=== PATIENT | male | born 1960 | race Two or more races ===

== ENCOUNTER 2021-11-25 14:57 | Inpatient (IN) | payer MEDICAID ==
[~2021-11-25] VITALS: Ht 144.8 cm; Wt 61.2 kg
--- NOTE | 2021-11-25 15:00 | NUR ---
MIHAELA HUANG FROM A FACILITY C/O NON HEALING WOUND ON L STUMP. PT HAS BOTH LOWER EXTREMITIES AMPUTATED. FINISHED ANTIBIOTS (KEFLEX) ON 11/21/21. VITALS ARE WITHIN NORMAL LIMITS. BREATHING IS EVEN AND UNALBORED. PT HAS A URINARY BAG ATTACHED TO LEG. AWAITING MD ORTEGA.
--- NOTE | 2021-11-25 15:10 | NUR ---
IV ETSBALISHED L AC 20G. LABS AND CULTURES DRAWN AND COLLETCED AT BEDSIDE. SALINE LOCK CONVERTED
--- NOTE | 2021-11-25 15:11 | NUR ---
DR VIERA AT BEDSIDE, ASSESSING WOUND.
[2021-11-25] MEDS ORDERED: ACET-868 PO (15:18)
[2021-11-25] MEDS ORDERED: BENA40TA8 PO (15:18)
[2021-11-25] MEDS ORDERED: ASCO-352 PO (15:18)
[2021-11-25] MEDS ORDERED: METF-440 PO (15:18)
[2021-11-25] MEDS ORDERED: ATOR40TA PO (15:18)
[2021-11-25] MEDS ORDERED: ZINC220C6 PO (15:18)
[2021-11-25] MEDS ORDERED: POLY15DR40 EACHEYE (15:18)
[2021-11-25] MEDS ORDERED: GLUC1KIT IM (15:18)
[2021-11-25] MEDS ORDERED: FERR325T24 PO (15:18)
[2021-11-25] MEDS ORDERED: FOLI0.4T6 PO (15:18)
[2021-11-25] MEDS ORDERED: MULT-447 PO (15:18)
[2021-11-25] MEDS ORDERED: CYAN-51 PO (15:18)
--- NOTE | 2021-11-25 15:38 | NUR ---
MOVE SHEET SUBMITTED AND CALLED FOR BED.
[2021-11-25 15:57] LABS: BASOPHILS # (AUTO) 0.1 K/uL (0.0-0.2); BASOPHILS % (AUTO) 0.7 % (0.0-2.0); HEMATOCRIT 27 % (39-51); HEMOGLOBIN 9.1 g/dL (13.5-17.5); LYMPHOCYTES # (AUTO) 1.8 K/uL (0.8-4.8); LYMPHOCYTES % (AUTO) 24.7 % (20.0-44.0); MEAN CORPUSCULAR HGB CONC 34 g/dl (31.0-36.0); MEAN CORPUSCULAR VOLUME 86 fL (80-96); MONOCYTES # (AUTO) 0.3 K/uL (0.1-1.30); MONOCYTES % (AUTO) 3.5 % (2.0-12.0); NEUTROPHILS # (AUTO) 5.1 K/uL (1.8-8.9); NEUTROPHILS % (AUTO) 70.1 % (43.0-81.0); PLATELET COUNT (AUTO) 438 K/uL (150-450); RED BLOOD CELL COUNT(AUTO) 3.15 MIL/uL (4.5-6.0); WHITE BLOOD COUNT (AUTO) 7.3 K/uL (4.3-11.0)
--- NOTE | 2021-11-25 16:28 | NUR ---
COVID TEST COLLECTED AND SENT
[2021-11-25 16:46] LABS: CALCIUM, SERUM 8.7 mg/dL (8.5-10.1); CREATININE 0.8 mg/dL (0.6-1.3); POTASSIUM 4.8 mmol/L (3.5-5.1)
--- NOTE | 2021-11-25 18:04 | NUR ---
[facility] CALLED STAFFING MGR PAGED.
[2021-11-25] MEDS ORDERED: Z GUARD REMEDY 4 OZ OINT TP PRN (19:00)
[2021-11-25] MEDS ORDERED: ACETAMINOPHEN 325 MG TABLET PO PRN (19:00)
[2021-11-25] MEDS ORDERED: ONDANSETRON HCL/PF 4 MG/2 ML VIAL IVP PRN (19:00)
[2021-11-25] MEDS ORDERED: IV NS 0.9% 500 ML IV ONE (19:00)
[2021-11-25] MEDS ORDERED: MAG HYDROX/AL HYDROX/SIMETH 30 ML UDC PO PRN (19:00)
[2021-11-25] MEDS ORDERED: MAGNESIUM HYDROXIDE 30 ML UDC PO PRN (19:00)
[2021-11-25] MEDS ORDERED: DEXTROSE 50%-WATER 50 ML DISP.SYRIN IV PRN (19:30)
[2021-11-25] MEDS ORDERED: ENOXAPARIN SODIUM 40 MG/0.4 ML DISP.SYRIN SQ ONE (20:54)
[2021-11-25] MEDS ORDERED: VANCOMYCIN 1 GM VIAL ONE (20:55)
[2021-11-25] MEDS ORDERED: VANCOMYCIN 500 MG VIAL ONE (20:57)
[2021-11-25] MEDS ORDERED: WATER FOR INJECTION,STERILE 10 ML ONE (20:58)
[2021-11-25] MEDS ORDERED: VANCOMYCIN 1.25 GM in IV D5W 250 ML IV ONE (21:00)
[2021-11-25] MEDS: ENOXAPARIN SODIUM 40 MG/0.4 ML DISP.SYRIN SQ SCH (21:10)
[2021-11-25] MEDS: BLOOD SUGAR DIAGNOSTIC 1 EACH STRIP IN SCH (22:10)
[2021-11-25] MEDS ORDERED: INSULIN REGULAR, HUMAN 100 UNIT/ML 10 ML VIAL ONE (22:18)
[2021-11-25] MEDS: INSULIN REGULAR, HUMAN 100 UNIT/ML 3 ML VIAL SQ PRN (22:23)
--- NOTE | 2021-11-26 00:53 | NUR ---
REPORT GIVEN TO TABITHA FOR KIRBY
[2021-11-26 01:15] VITALS: BP 104/60
--- NOTE | 2021-11-26 01:17 | NUR ---
PT WAS TRANSFERRED TO 322 UNDER ACLS IN STABLE CONDITION.
[2021-11-26 02:03] VITALS: BP 104/60
--- NOTE | 2021-11-26 04:22 | NUR ---
ADMISSION NOTES RECEIVED PT VIA MAYELA @1656. PT AOx4, ABLE TO MAKE NEEDS KNOWN AND FRISIAN SPEAKING. ON RA AND TOLERATING WELL. NO SOB NOTED. NO S/SX OF RESPIRATORY DISTRESS NOTED. TELE MONITOR DETECTS SR WITH RATE OF 75. IV ACCESS IN LAC #20. IV IS INTACT, PATENT, AND FLUSHING WELL. SAFETY PRECAUTIONS IN PLACE: BED IN LOWEST, LOCKED POSITION, SIDERAILS UPx2, AND BRAKES ON. TABLE AND CALL LIGHT WITHIN REACH. WILL CONTINUE TO MONITOR.
[2021-11-26] MEDS: BLOOD SUGAR DIAGNOSTIC 1 EACH STRIP IN SCH ×4 (06:52→22:05)
--- NOTE | 2021-11-26 07:29 | NUR ---
REPORT GIVEN TO DAYSHIFT RN. PATIENT IS STABLE. NO SIGNIFICANT CHANGES DURING SHIFT.
--- NOTE | 2021-11-26 07:43 | NUR ---
MANAGER BIOLOGICS OPENING NOTES RECEIVED PATIENT IN BED, AWAKE, A/O X4. PATIENT ON ROOM AIR; BREATHING EVEN AND UNLABORED; NO SOB NOTED. TELE MONITOR WITH A CURRENT READING OF NSR 76. NO COMPLAINS OF PAIN. IV ACCESS AT LAC G #20 PRESENT AND INTACT. SAFETY PRECAUTIONS IN PLACE; BED IN LOW POSITION AND LOCKED, RAILS UP X2, CALL LIGHT WITHIN REACH. WILL CONTINUE TO MONITOR PATIENT.
[2021-11-26 07:55] LABS: THYROID STIMULATING HORMONE 1.592 uIU/mL (0.358-3.74)
[2021-11-26 08:00] VITALS: BP 131/72
[2021-11-26] MEDS ORDERED: VANCOMYCIN 1 GM in IV D5W 250 ML IV SCH (08:00)
[2021-11-26] MEDS: PANTOPRAZOLE 40 MG TABLET.DR PO SCH (08:07)
[2021-11-26 08:31] LABS: BASOPHILS % (AUTO) 0.4 % (0.0-2.0); EOSINOPHILS % (AUTO) 1.7 % (0.0-6.0); HEMATOCRIT 27 % (39-51); HEMOGLOBIN 9.2 g/dL (13.5-17.5); LYMPHOCYTES # (AUTO) 1.9 K/uL (0.8-4.8); LYMPHOCYTES % (AUTO) 32.3 % (20.0-44.0); MEAN CORPUSCULAR HGB CONC 34 g/dl (31.0-36.0); MEAN CORPUSCULAR VOLUME 85 fL (80-96); MONOCYTES # (AUTO) 0.2 K/uL (0.1-1.30); NEUTROPHILS # (AUTO) 3.7 K/uL (1.8-8.9); NEUTROPHILS % (AUTO) 61.6 % (43.0-81.0); PLATELET COUNT (AUTO) 431 K/uL (150-450); RED BLOOD CELL COUNT(AUTO) 3.13 MIL/uL (4.5-6.0)
--- NOTE | 2021-11-26 08:57 | NUR ---
WOUND CARE CONSULT: LIMITED ASSESSMENT AT THIS TIME. PT PRESENTS WITH LEFT STUMP DRY WOUND, PRESENT ON ADMISSION. DR MCCONNELL CALLED FOR DPM CONSULT. IN AGREEMENT WITH PLAN OF CARE. CURRENT EDDA SCORE IS 19.
[2021-11-26] MEDS: VANCOMYCIN 0.75 GM in IV D5W 250 ML IV SCH ×3 (09:27→23:22)
[2021-11-26] MEDS ORDERED: ACETAMINOPHEN 325 MG TABLET PO PRN (09:30)
[2021-11-26] MEDS ORDERED: GLUCAGON,HUMAN RECOMBINANT 1 MG/VIAL VIAL IM PRN (10:00)
--- NOTE | 2021-11-26 10:06 | NUR ---
TEXTED DR. LEBRON FOR MRI APPROVAL.
[2021-11-26 10:12] LABS: CALCIUM, SERUM 9.8 mg/dL (8.5-10.1); CREATININE 0.8 mg/dL (0.6-1.3); PHOSPHORUS 4.6 mg/dL (2.5-4.9); POTASSIUM 4.6 mmol/L (3.5-5.1)
--- NOTE | 2021-11-26 10:19 | NUR ---
MRI APPROVED, TUBE CLEANER NOTIFIED VIA TEXT.
[2021-11-26 12:00] VITALS: BP 129/70
[2021-11-26 16:00] VITALS: BP 127/78
[2021-11-26] MEDS: GLUCERNA SHAKE 237 ML CAN PO SCH (16:09)
[2021-11-26] MEDS: POLYVINYL ALCOHOL/POVIDONE 0.4 ML DROPERETTE EACHEYE SCH (17:08)
[2021-11-26] MEDS: METFORMIN 500 MG TABLET PO SCH (17:09)
--- NOTE | 2021-11-26 18:39 | NUR ---
FLUTE POLISHER CLOSING NOTES PATIENT REMAINS IN BED, AWAKE, A/O X4. PATIENT ON ROOM AIR; BREATHING EVEN AND UNLABORED; NO SOB NOTED DURING THE DAY. TELE MONITOR WITH A CURRENT READING OF NSR. NO COMPLAINS OF PAIN DURING SHIFT. IV ACCESS AT LAC G #20 PRESENT AND INTACT. ALL NEEDS ATTENDED DURING THE DAY. SAFETY PRECAUTIONS IN PLACE; BED IN LOW POSITION AND LOCKED, RAILS UP X2, CALL LIGHT WITHIN REACH. WILL ENDORSE TO NON LICENSED NUCLEAR PLANT OPERATOR NURSE FOR KIRBY.
--- NOTE | 2021-11-26 19:30 | NUR ---
BAR HOST/HOSTESS OPENING NOTES RECEIVED PT IN BED, AWAKE. A/O X4. PT STABLE ON ROOM AIR. NO SOB OR S/S OF RESPIRATORY DISTRESS. EXTERNAL POLYMERIZATION ENGINEER READING SR. NO COMPLAINS OF PAIN AT THIS TIME. IV ACCESS AT LAC 20 GAUGE INTACT AND PATENT.SAFETY PRECAUTIONS IN PLACE. BED IN LOWEST LOCKED POSITION, HOB ELEVATED, SIDE RAILS UP X2, AND CALL LIGHT AND TABLE WITHIN REACH. WILL CONTINUE WITH PLAN OF CARE.
[2021-11-26 20:00] VITALS: BP 135/56
[2021-11-26] MEDS: ENOXAPARIN SODIUM 40 MG/0.4 ML DISP.SYRIN SQ SCH (21:39)
[2021-11-27] VITALS (7 sets, daily range): BP systolic 97–122; BP diastolic 52–68
[2021-11-27] MEDS: BLOOD SUGAR DIAGNOSTIC 1 EACH STRIP IN SCH ×4 (06:38→21:32)
--- NOTE | 2021-11-27 06:51 | NUR ---
WHEEL FILLER CLOSING NOTES PT IN BED, AWAKE. A/O X4. PT STABLE ON ROOM AIR. NO SOB OR S/S OF RESPIRATORY DISTRESS. EXTERNAL BUSINESS OPERATIONS SPECIALIST READING SR. NO COMPLAINS OF PAIN AT THIS TIME. IV ACCESS AT LAC 20 GAUGE INTACT AND PATENT. LEFT BKA WOUND DRESSING CHANGED AND C/D/I. ALL NEEDS MET AT THIS TIME. SAFETY PRECAUTIONS IN PLACE AT ALL TIMES. BED IN LOWEST LOCKED POSITION, HOB ELEVATED, SIDE RAILS UP X2, AND CALL LIGHT AND TABLE WITHIN REACH. WILL ENDORSE TO ONCOMING NURSE FOR KIRBY.
[2021-11-27 06:53] LABS: BASOPHILS % (AUTO) 0.6 % (0.0-2.0); EOSINOPHILS % (AUTO) 1.9 % (0.0-6.0); HEMATOCRIT 27 % (39-51); HEMOGLOBIN 9.1 g/dL (13.5-17.5); LYMPHOCYTES % (AUTO) 34.8 % (20.0-44.0); MEAN CORPUSCULAR HGB CONC 33 g/dl (31.0-36.0); MEAN CORPUSCULAR VOLUME 86 fL (80-96); MONOCYTES # (AUTO) 0.3 K/uL (0.1-1.30); MONOCYTES % (AUTO) 5.2 % (2.0-12.0); NEUTROPHILS # (AUTO) 3.3 K/uL (1.8-8.9); NEUTROPHILS % (AUTO) 57.5 % (43.0-81.0); PLATELET COUNT (AUTO) 429 K/uL (150-450); RED BLOOD CELL COUNT(AUTO) 3.18 MIL/uL (4.5-6.0); WHITE BLOOD COUNT (AUTO) 5.8 K/uL (4.3-11.0)
--- NOTE | 2021-11-27 07:18 | NUR ---
TWISTER OPERATOR OPENING NOTES RECEIVED PT IN BED, AWAKE. A/O X4. PT IS BREATHING EVENLY AND NONLABORED. STABLE ON ROOM AIR. NO SOB OR S/S OF RESPIRATORY DISTRESS. PATIENT NOTED WITH EXTERNAL MANAGEMENT LECTURER READING SR. NO COMPLAINS OF PAIN AT THIS TIME. IV ACCESS AT LAC 20 GAUGE INTACT AND PATENT. DRESSING C/D/I. SAFETY PRECAUTIONS IN PLACE. BED IN LOWEST LOCKED POSITION, HOB ELEVATED, SIDE RAILS UP X2, AND CALL LIGHT AND TABLE WITHIN REACH. WILL CONTINUE TO MONITOR
[2021-11-27 07:24] LABS: CALCIUM, SERUM 8.7 mg/dL (8.5-10.1); CREATININE 0.9 mg/dL (0.6-1.3); MAGNESIUM 1.9 mg/dL (1.8-2.4); PHOSPHORUS 4.3 mg/dL (2.5-4.9); POTASSIUM 4.2 mmol/L (3.5-5.1)
[2021-11-27] MEDS: PANTOPRAZOLE 40 MG TABLET.DR PO SCH (08:26)
[2021-11-27] MEDS: GLUCERNA SHAKE 237 ML CAN PO SCH ×2 (08:26→16:10)
[2021-11-27] MEDS: METFORMIN 500 MG TABLET PO SCH ×2 (08:27→16:21)
[2021-11-27] MEDS: ATORVASTATIN 40 MG TABLET PO SCH (08:27)
[2021-11-27] MEDS: CYANOCOBALAMIN 500 MCG TABLET PO SCH (08:28)
[2021-11-27] MEDS: BENAZEPRIL HCL 20 MG TABLET PO SCH (08:28)
[2021-11-27] MEDS: ASCORBIC ACID 500 MG TABLET PO SCH (08:28)
[2021-11-27] MEDS: ZINC SULFATE 220 MG CAPSULE PO SCH (08:28)
[2021-11-27] MEDS: FERROUS SULFATE (325 MG) 325 MG/TAB TABLET PO SCH (08:29)
[2021-11-27] MEDS: FOLIC ACID 1 MG TABLET PO SCH (08:29)
[2021-11-27] MEDS: MULTIVIT W/MINERALS 1 TAB TABLET PO SCH (08:29)
[2021-11-27] MEDS: POLYVINYL ALCOHOL/POVIDONE 0.4 ML DROPERETTE EACHEYE SCH ×2 (08:31→16:21)
[2021-11-27] MEDS: VANCOMYCIN 0.75 GM in IV D5W 250 ML IV SCH (09:07)
--- NOTE | 2021-11-27 09:34 | NUR ---
RN NOTE DR NGUYEN CALLED HAVE ORDER FOR STAT CT LEFT LOWER EXTREMITY
[2021-11-27] MEDS: INSULIN REGULAR, HUMAN 100 UNIT/ML 3 ML VIAL SQ PRN ×2 (11:27→16:41)
[2021-11-27] MEDS: VANCOMYCIN 500 MG in IV D5W 100 ML IV SCH (15:00)
--- NOTE | 2021-11-27 18:20 | NUR ---
INSPECTOR SUBASSEMBLY CLOSING NOTES PT IN BED, AWAKE. A/O X4. PT IS BREATHING EVENLY AND NONLABORED. STABLE ON ROOM AIR. NO SOB OR S/S OF RESPIRATORY DISTRESS. PATIENT NOTED WITH EXTERNAL MANAGER SHIP READING SR. NO COMPLAINS OF PAIN AT THIS TIME. IV ACCESS AT LAC 20 GAUGE INTACT AND PATENT. WOUND CARE PERFORMED DURING SHIFT DRESSING C/D/I. SAFETY ALL MEDICATIONS GIVEN ORDERED. PRECAUTIONS IN PLACE. BED IN LOWEST LOCKED POSITION, HOB ELEVATED, SIDE RAILS UP X2, AND CALL LIGHT AND TABLE WITHIN REACH. WILL ENDORSE TO ONCOMING SHIFT
[2021-11-27] MEDS: ENOXAPARIN SODIUM 40 MG/0.4 ML DISP.SYRIN SQ SCH (20:55)
[2021-11-28] MEDS: VANCOMYCIN 500 MG in IV D5W 100 ML IV SCH ×3 (00:11→16:24)
[2021-11-28] MEDS: IV NS 0.9% 1,000 ML IV PRN ×2 (00:11→21:18)
[2021-11-28 00:34] VITALS: BP 111/62
[2021-11-28 00:39] VITALS: BP 111/62
[2021-11-28 04:23] VITALS: BP 119/67
--- NOTE | 2021-11-28 04:48 | NUR ---
Closing Notes: alert and orientated X4 cooperative Syriac speaking by clearly will make his needs known needed to have a BM uising a W/C to take him to the bathroom able to go from bed to w/c easily minimal assist Good BM Started IV fluids at midnight as ordered NPO for scheduled @ 8AM I and D left BK stump abcess. Consent and paper work signed in chart Tele reading Sinus Rhytym thru the night left BKA stump dressing CDI thru the night Condom cath to leg bag empitien Q 2 - 3 hours in amounts 200 ml to 300 ml clear yellow
[2021-11-28] MEDS: BLOOD SUGAR DIAGNOSTIC 1 EACH STRIP IN SCH ×4 (06:03→22:05)
[2021-11-28 07:02] LABS: BASOPHILS % (AUTO) 0.6 % (0.0-2.0); EOSINOPHILS % (AUTO) 1.6 % (0.0-6.0); HEMATOCRIT 26 % (39-51); HEMOGLOBIN 8.9 g/dL (13.5-17.5); LYMPHOCYTES # (AUTO) 1.9 K/uL (0.8-4.8); LYMPHOCYTES % (AUTO) 30.4 % (20.0-44.0); MEAN CORPUSCULAR HGB CONC 34 g/dl (31.0-36.0); MEAN CORPUSCULAR VOLUME 86 fL (80-96); MONOCYTES # (AUTO) 0.3 K/uL (0.1-1.30); NEUTROPHILS # (AUTO) 3.9 K/uL (1.8-8.9); NEUTROPHILS % (AUTO) 62.4 % (43.0-81.0); PLATELET COUNT (AUTO) 390 K/uL (150-450); RED BLOOD CELL COUNT(AUTO) 3.05 MIL/uL (4.5-6.0); WHITE BLOOD COUNT (AUTO) 6.2 K/uL (4.3-11.0)
[2021-11-28 07:25] LABS: CALCIUM, SERUM 9.3 mg/dL (8.5-10.1); CREATININE 0.8 mg/dL (0.6-1.3); PHOSPHORUS 3.8 mg/dL (2.5-4.9); POTASSIUM 4.4 mmol/L (3.5-5.1)
[2021-11-28] MEDS ORDERED: ANESTHESIA TRAY IN PYXIS 1 EA TRAY MC ONE (07:29)
--- NOTE | 2021-11-28 07:35 | NUR ---
RN OPENING NOTES PATIENT AWAKE IN BED RESTING, A/O X4. NO S/S OF PAIN NOTED AT THIS TIME. ON ROOM AIR, NO DISTRESS OR SHORTNESS OF BREATH NOTED. IV ACCESS LAC, INTACT, PATENT AND FLUSHING WELL. PATIENT HAVE AN EXTERNAL RUBBER CURER WITH CURRENT READING OF S.R., NO CARDIAC DISTRESS NOTED. FALL AND SAFETY MEASURES IN PLACE, BED ALARM ON, BED IN LOW AND LOCK POSITION, CALL LIGHT AND TABLE WITHIN EASY REACH, SIDE RAILS UP X2. WILL CONTINUE TO MONITOR.
--- NOTE | 2021-11-28 07:40 | NUR ---
RN NOTES PATIENT IS NOT IN ROOM HE WAS TAKEN TO GET AN INCISION AND DRAINAGE LEFT BELOW KNEE AMPUTATION ABSCESS.
[2021-11-28] MEDS ORDERED: HYDROMORPHONE INJ 2 MG/ML DISP.SYRIN ONE (07:54)
[2021-11-28] MEDS: GLUCERNA SHAKE 237 ML CAN PO SCH ×2 (08:00→17:04)
[2021-11-28] MEDS: POLYVINYL ALCOHOL/POVIDONE 0.4 ML DROPERETTE EACHEYE SCH ×2 (09:00→16:28)
[2021-11-28] MEDS: MULTIVIT W/MINERALS 1 TAB TABLET PO SCH (10:43)
[2021-11-28] MEDS: ZINC SULFATE 220 MG CAPSULE PO SCH (10:43)
[2021-11-28] MEDS: FOLIC ACID 1 MG TABLET PO SCH (10:43)
[2021-11-28] MEDS: PANTOPRAZOLE 40 MG TABLET.DR PO SCH (10:43)
[2021-11-28] MEDS: CYANOCOBALAMIN 500 MCG TABLET PO SCH (10:43)
[2021-11-28] MEDS: ASCORBIC ACID 500 MG TABLET PO SCH (10:43)
[2021-11-28] MEDS: ATORVASTATIN 40 MG TABLET PO SCH (10:43)
[2021-11-28] MEDS: BENAZEPRIL HCL 20 MG TABLET PO SCH (10:44)
[2021-11-28] MEDS: FERROUS SULFATE (325 MG) 325 MG/TAB TABLET PO SCH (10:44)
[2021-11-28] MEDS: METFORMIN 500 MG TABLET PO SCH ×2 (10:44→16:28)
[2021-11-28 12:00] VITALS: BP 114/66
[2021-11-28] MEDS: INSULIN REGULAR, HUMAN 100 UNIT/ML 3 ML VIAL SQ PRN ×2 (13:05→18:29)
--- NOTE | 2021-11-28 13:44 | NUR ---
RN NOTE POLYVINYL ALCOHOL/ POVIDONE EYE DROP WAS NOT ADMINISTERED, EYE DROP ARE NOT AT BEDSIDE OR IN THE MED. ROOM. PHARMACY WAS CALLED AND INFORMED, PHARMACY SAID THEY WILL SEND THE MEDICATION.
[2021-11-28 16:00] VITALS: BP 115/65
--- NOTE | 2021-11-28 19:06 | NUR ---
RN CLOSING NOTES PATIENT AWAKE IN BED RESTING, A/O X4. NO S/S OF PAIN NOTED AT THIS TIME. ON ROOM AIR, NO DISTRESS OR SHORTNESS OF BREATH NOTED. IV ACCESS LAC, INTACT, PATENT AND FLUSHING WELL. PATIENT HAVE AN EXTERNAL MICROFILMER WITH CURRENT READING OF S.R. AND HR OF 100, NO CARDIAC DISTRESS NOTED. FALL AND SAFETY MEASURES IN PLACE, BED ALARM ON, BED IN LOW AND LOCK POSITION, CALL LIGHT AND TABLE WITHIN EASY REACH, SIDE RAILS UP X2. WILL ENDORSE TO DISHWASHER.
--- NOTE | 2021-11-28 19:25 | NUR ---
OVEN BAKER OPENING NOTES PATIENT LAYING AWAKE IN BED. A/O X4. PATIENT WITH REGULAR AND UNLABORED BREATHING ON ROOM AIR, TOLERATED WELL. NO SIGNS OR SYMPTOMS OF DISTRESS NOTED AT THIS TIME. NO COMPLAINS OF PAIN OR DISCOMFORT AT THIS TIME. PATIENT ON TELE MONITOR READING SR @ 93 BPM. IV ACCESS LAC G #20 INFUSING NS @ 75 ML/HR. IV ACCESS PATENT AND INTACT. SAFETY PRECAUTIONS ENFORCED WITH BED LOCKED AND AT LOWEST POSITION. SIDERAILS UP X2. CALL LIGHT WITHIN REACH AT ALL TIMES. WILL CONTINUE TO MONITOR PATIENT.
[2021-11-28 20:00] VITALS: BP 114/61
[2021-11-28] MEDS: ENOXAPARIN SODIUM 40 MG/0.4 ML DISP.SYRIN SQ SCH (21:09)
[2021-11-29] VITALS: BP 137/76
[2021-11-29] MEDS: VANCOMYCIN 500 MG in IV D5W 100 ML IV SCH ×2 (00:05→14:20)
[2021-11-29 04:00] VITALS: BP 144/82
[2021-11-29 06:55] LABS: BASOPHILS % (AUTO) 0.5 % (0.0-2.0); EOSINOPHILS % (AUTO) 0.4 % (0.0-6.0); HEMATOCRIT 22 % (39-51); HEMOGLOBIN 7.3 g/dL (13.5-17.5); LYMPHOCYTES # (AUTO) 2.4 K/uL (0.8-4.8); MEAN CORPUSCULAR HGB CONC 34 g/dl (31.0-36.0); MEAN CORPUSCULAR VOLUME 87 fL (80-96); MONOCYTES # (AUTO) 0.4 K/uL (0.1-1.30); MONOCYTES % (AUTO) 5.4 % (2.0-12.0); NEUTROPHILS # (AUTO) 4.9 K/uL (1.8-8.9); NEUTROPHILS % (AUTO) 62.7 % (43.0-81.0); PLATELET COUNT (AUTO) 364 K/uL (150-450); RED BLOOD CELL COUNT(AUTO) 2.51 MIL/uL (4.5-6.0); WHITE BLOOD COUNT (AUTO) 7.8 K/uL (4.3-11.0)
[2021-11-29] MEDS: BLOOD SUGAR DIAGNOSTIC 1 EACH STRIP IN SCH ×4 (06:55→22:00)
--- NOTE | 2021-11-29 06:59 | NUR ---
CERTIFIED WELDING INSPECTOR CLOSING NOTES PATIENT STILL LAYING AWAKE IN BED. A/O X4. PATIENT WITH REGULAR AND UNLABORED BREATHING ON ROOM AIR, TOLERATED WELL. NO SIGNS OR SYMPTOMS OF DISTRESS NOTED AT THIS TIME. NO COMPLAINS OF PAIN OR DISCOMFORT AT THIS TIME. PATIENT ON TELE MONITOR READING SR @ 86 BPM. IV ACCESS LFA G #20 INFUSING NS @ 75 ML/HR. IV ACCESS PATENT AND INTACT. SAFETY PRECAUTIONS ENFORCED WITH BED LOCKED AND AT LOWEST POSITION. SIDERAILS UP X2. CALL LIGHT WITHIN REACH AT ALL TIMES. WILL ENDORSE CONTINUITY OF CARE TO DAY SHIFT NURSE.
[2021-11-29] MEDS: PANTOPRAZOLE 40 MG TABLET.DR PO SCH (07:28)
--- NOTE | 2021-11-29 07:30 | NUR ---
ECHOCARDIOGRAPH TECH OPENING NOTES RECEIVED PATIENT LAYING AWAKE IN BED. A/O X4.SETSWANA SPEAKING. PATIENT WITH REGULAR AND UNLABORED BREATHING ON ROOM AIR, TOLERATED WELL. NO SIGNS OR SYMPTOMS OF DISTRESS NOTED AT THIS TIME. NO COMPLAINS OF PAIN OR DISCOMFORT AT THIS TIME. PATIENT ON TELE MONITOR IV ACCESS LFA G #20 INFUSING NS @ 75 ML/HR. IV ACCESS PATENT AND INTACT. SAFETY PRECAUTIONS IN PLACE .BED LOCKED AND AT LOWEST POSITION. SIDERAILS UP X2. CALL LIGHT WITHIN REACH AT ALL TIMES. WILL CONTINUE TO MONITOR PATIENT.
[2021-11-29 07:34] LABS: CALCIUM, SERUM 8.3 mg/dL (8.5-10.1); CREATININE 0.8 mg/dL (0.6-1.3); MAGNESIUM 1.8 mg/dL (1.8-2.4); PHOSPHORUS 3.5 mg/dL (2.5-4.9); POTASSIUM 4.2 mmol/L (3.5-5.1)
[2021-11-29] MEDS: GLUCERNA SHAKE 237 ML CAN PO SCH ×2 (07:55→17:32)
[2021-11-29 08:00] VITALS: BP 128/70
[2021-11-29] MEDS: FOLIC ACID 1 MG TABLET PO SCH (08:06)
[2021-11-29] MEDS: METFORMIN 500 MG TABLET PO SCH ×2 (08:07→16:46)
[2021-11-29] MEDS: ATORVASTATIN 40 MG TABLET PO SCH (08:07)
[2021-11-29] MEDS: CYANOCOBALAMIN 500 MCG TABLET PO SCH (08:07)
[2021-11-29] MEDS: ASCORBIC ACID 500 MG TABLET PO SCH (08:07)
[2021-11-29] MEDS: FERROUS SULFATE (325 MG) 325 MG/TAB TABLET PO SCH (08:07)
[2021-11-29] MEDS: MULTIVIT W/MINERALS 1 TAB TABLET PO SCH (08:07)
[2021-11-29] MEDS: BENAZEPRIL HCL 20 MG TABLET PO SCH (08:09)
[2021-11-29] MEDS: POLYVINYL ALCOHOL/POVIDONE 0.4 ML DROPERETTE EACHEYE SCH ×2 (08:11→18:59)
[2021-11-29] MEDS: ZINC SULFATE 220 MG CAPSULE PO SCH (08:11)
--- NOTE | 2021-11-29 09:44 | NUR ---
WOUND CARE: [facility] WOUND VAC WAS APPLIED TO LEFT BELOW KNEE STUMP SURGICAL SITE PER DR NGUYEN'S ORDER. VAC AT 125mmHg CONTINUOUS SETTING. WOUND IS RED IN COLOR WITH SMALL AMOUNT OF SEROSANGUINOUS DRAINAGE, NO ODOR AND SLIGHT PERIWOUND REDNESS TO STUMP. SKIN PREP AND VAC DRAPE WAS APPLIED TO PERIWOUND, ONE PIECE OF GRANUFOAM TO WOUND. PT TOLERATED WELL. WILL FOLLOW.
[2021-11-29] MEDS: IV NS 0.9% 1,000 ML IV PRN ×2 (12:04→23:22)
[2021-11-29 16:00] VITALS: BP 113/57
--- NOTE | 2021-11-29 19:17 | NUR ---
MS RN CLOSING NOTES PATIENT LAYING AWAKE IN BED. A/O X4.ALGERIAN SPEAKING. PATIENT WITH REGULAR AND UNLABORED BREATHING ON ROOM AIR, TOLERATED WELL. NO SIGNS OR SYMPTOMS OF DISTRESS NOTED AT THIS TIME. NO COMPLAINS OF PAIN OR DISCOMFORT AT THIS TIME. IV ACCESS LFA G #20 INFUSING NS @ 75 ML/HR. IV ACCESS PATENT AND INTACT. SAFETY PRECAUTIONS IN PLACE .ALL DUE MEDS AND TREATMENTS GIVEN ORDERED.BED LOCKED AND AT LOWEST POSITION. SIDE RAILS UP X2. CALL LIGHT AND TABLE WITHIN REACH AT ALL TIMES. WILL ENDORSE FOR KIRBY.
[2021-11-29] MEDS: ENOXAPARIN SODIUM 40 MG/0.4 ML DISP.SYRIN SQ SCH (23:00)
[2021-11-30] MEDS: VANCOMYCIN 500 MG in IV D5W 100 ML IV SCH ×2 (02:15→13:30)
[2021-11-30 05:30] VITALS: BP 116/67
[2021-11-30 06:53] LABS: BASOPHILS % (AUTO) 0.5 % (0.0-2.0); EOSINOPHILS % (AUTO) 1.3 % (0.0-6.0); HEMATOCRIT 24 % (39-51); HEMOGLOBIN 8.2 g/dL (13.5-17.5); LYMPHOCYTES # (AUTO) 1.9 K/uL (0.8-4.8); LYMPHOCYTES % (AUTO) 26.5 % (20.0-44.0); MEAN CORPUSCULAR HGB CONC 34 g/dl (31.0-36.0); MEAN CORPUSCULAR VOLUME 87 fL (80-96); MONOCYTES # (AUTO) 0.3 K/uL (0.1-1.30); MONOCYTES % (AUTO) 4.4 % (2.0-12.0); NEUTROPHILS # (AUTO) 4.7 K/uL (1.8-8.9); NEUTROPHILS % (AUTO) 67.3 % (43.0-81.0); PLATELET COUNT (AUTO) 340 K/uL (150-450); RED BLOOD CELL COUNT(AUTO) 2.81 MIL/uL (4.5-6.0); WHITE BLOOD COUNT (AUTO) 7.1 K/uL (4.3-11.0)
[2021-11-30 07:24] LABS: CALCIUM, SERUM 8.5 mg/dL (8.5-10.1); CREATININE 0.7 mg/dL (0.6-1.3); MAGNESIUM 1.6 mg/dL (1.8-2.4); PHOSPHORUS 3.3 mg/dL (2.5-4.9); POTASSIUM 4.1 mmol/L (3.5-5.1)
--- NOTE | 2021-11-30 07:30 | NUR ---
MS RN OPENING NOTES RECEIVED PATIENT LAYING AWAKE IN BED. A/O X4.NAURUAN SPEAKING. PATIENT WITH REGULAR AND UNLABORED BREATHING ON ROOM AIR, TOLERATED WELL. NO SIGNS OR SYMPTOMS OF DISTRESS NOTED AT THIS TIME. NO COMPLAINS OF PAIN OR DISCOMFORT AT THIS TIME. IV ACCESS LFA G #20 INFUSING NS @ 75 ML/HR. IV ACCESS PATENT AND INTACT. WOUND VAC INTACT. NO ACTIVE BLEEDING NOTED. SAFETY PRECAUTIONS IN PLACE .BED LOCKED AND AT LOWEST POSITION. SIDE RAILS UP X2. CALL LIGHT WITHIN REACH AT ALL TIMES. WILL CONTINUE TO MONITOR PATIENT.
[2021-11-30] MEDS: PANTOPRAZOLE 40 MG TABLET.DR PO SCH (07:38)
[2021-11-30] MEDS: BLOOD SUGAR DIAGNOSTIC 1 EACH STRIP IN SCH ×4 (07:43→21:21)
[2021-11-30 08:00] VITALS: BP 129/70
[2021-11-30] MEDS: GLUCERNA SHAKE 237 ML CAN PO SCH ×2 (08:04→17:30)
[2021-11-30] MEDS: FOLIC ACID 1 MG TABLET PO SCH (08:10)
[2021-11-30] MEDS: POLYVINYL ALCOHOL/POVIDONE 0.4 ML DROPERETTE EACHEYE SCH ×2 (08:10→16:13)
[2021-11-30] MEDS: CYANOCOBALAMIN 500 MCG TABLET PO SCH (08:10)
[2021-11-30] MEDS: METFORMIN 500 MG TABLET PO SCH ×2 (08:10→16:13)
[2021-11-30] MEDS: ASCORBIC ACID 500 MG TABLET PO SCH (08:10)
[2021-11-30] MEDS: MULTIVIT W/MINERALS 1 TAB TABLET PO SCH (08:10)
[2021-11-30] MEDS: FERROUS SULFATE (325 MG) 325 MG/TAB TABLET PO SCH (08:10)
[2021-11-30] MEDS: ATORVASTATIN 40 MG TABLET PO SCH (08:10)
[2021-11-30] MEDS: BENAZEPRIL HCL 20 MG TABLET PO SCH (08:11)
--- NOTE | 2021-11-30 08:20 | NUR ---
WOUND CARE FOLLOW UP: [employer] VAC FUNCTIONING WELL AT 125mmHg CONTINUOUS SETTING TO LEFT BELOW KNEE STUMP SURGICAL SITE. PLAN FOR NEXT DRESSING CHANGE DEC 03. DISCUSSED WITH NURSING STAFF. MD IN AGREEMENT WITH PLAN OF CARE.
[2021-11-30] MEDS: ZINC SULFATE 220 MG CAPSULE PO SCH (08:27)
[2021-11-30] MEDS ORDERED: MAGNESIUM OXIDE 400 MG TABLET PO ONE (11:00)
[2021-11-30 16:00] VITALS: BP 146/84
[2021-11-30] MEDS: IV NS 0.9% 1,000 ML IV PRN (16:09)
[2021-11-30] MEDS: INSULIN REGULAR, HUMAN 100 UNIT/ML 3 ML VIAL SQ PRN (18:40)
--- NOTE | 2021-11-30 19:30 | NUR ---
MS RN CLOSING NOTES PATIENT LAYING AWAKE IN BED. A/O X4.JAMAICAN SPEAKING. PATIENT WITH REGULAR AND UNLABORED BREATHING ON ROOM AIR, TOLERATED WELL. NO SIGNS OR SYMPTOMS OF DISTRESS NOTED AT THIS TIME. NO COMPLAINS OF PAIN OR DISCOMFORT AT THIS TIME. IV ACCESS LFA G #20 INFUSING NS @ 75 ML/HR. IV ACCESS PATENT AND INTACT. WOUND VAC INTACT. NO ACTIVE BLEEDING NOTED. ALL DUE MEDS GIVEN ORDERED.SAFETY PRECAUTIONS IN PLACE .BED LOCKED AND AT LOWEST POSITION. SIDE RAILS UP X2. CALL LIGHT WITHIN REACH AT ALL TIMES. WILL ENDORSE FOR KIRBY.
--- NOTE | 2021-11-30 19:34 | NUR ---
MS RN CLOSING NOTES RECEIVED PATIENT LAYING AWAKE IN BED. A/O X4. THAI SPEAKING. PT STABLE ON ROOM AIR. NO SOB OR S/S OF RESPIRATORY DISTRESS. IV ACCESS LFA G 20 RUNNING NS @ 75 ML/HR, INTACT AND PATENT. WOUND VAC INTACT. NO ACTIVE BLEEDING NOTED. SAFETY PRECAUTIONS IN PLACE. BED IN LOWEST LOCKED POSITION, HOB ELEVATED, SIDE RAILS UP X2, AND CALL LIGHT AND TABLE WITHIN REACH. WILL CONTINUE WITH PLAN OF CARE. Addendum: 11/30/21 at 1936 by ISIDRO HERNDON RN OPENING NOTE NOT CLOSING NOTE
[2021-11-30 20:00] VITALS: BP 122/56
[2021-11-30] MEDS: ENOXAPARIN SODIUM 40 MG/0.4 ML DISP.SYRIN SQ SCH (20:53)
[2021-12-01] MEDS: VANCOMYCIN 500 MG in IV D5W 100 ML IV SCH (02:40)
[2021-12-01] MEDS: BLOOD SUGAR DIAGNOSTIC 1 EACH STRIP IN SCH ×4 (06:42→21:47)
[2021-12-01 06:56] LABS: BASOPHILS % (AUTO) 0.5 % (0.0-2.0); EOSINOPHILS % (AUTO) 1.9 % (0.0-6.0); HEMATOCRIT 26 % (39-51); HEMOGLOBIN 8.8 g/dL (13.5-17.5); LYMPHOCYTES # (AUTO) 1.9 K/uL (0.8-4.8); LYMPHOCYTES % (AUTO) 28.3 % (20.0-44.0); MEAN CORPUSCULAR HGB CONC 34 g/dl (31.0-36.0); MEAN CORPUSCULAR VOLUME 87 fL (80-96); MONOCYTES # (AUTO) 0.3 K/uL (0.1-1.30); MONOCYTES % (AUTO) 5.1 % (2.0-12.0); NEUTROPHILS # (AUTO) 4.4 K/uL (1.8-8.9); NEUTROPHILS % (AUTO) 64.2 % (43.0-81.0); PLATELET COUNT (AUTO) 344 K/uL (150-450); WHITE BLOOD COUNT (AUTO) 6.8 K/uL (4.3-11.0)
--- NOTE | 2021-12-01 06:59 | NUR ---
MS RN CLOSING NOTES PATIENT LAYING AWAKE IN BED. A/O X4. CHINESE SPEAKING. PT STABLE ON ROOM AIR. NO SOB OR S/S OF RESPIRATORY DISTRESS. IV ACCESS LFA G 20 RUNNING NS @ 75 ML/HR, INTACT AND PATENT. WOUND VAC INTACT. NO ACTIVE BLEEDING NOTED. ALL NEEDS MET AT THIS TIME. SAFETY PRECAUTIONS IN PLACE AT ALL TIMES. BED IN LOWEST LOCKED POSITION, HOB ELEVATED, SIDE RAILS UP X2, AND CALL LIGHT AND TABLE WITHIN REACH. WILL ENDORSE TO ONCOMING NURSE FOR KIRBY.
[2021-12-01 07:12] LABS: ALBUMIN 2.5 g/dL (3.4-5.0); BILIRUBIN,TOTAL 0.2 mg/dL (0.2-1.0); CALCIUM, SERUM 8.4 mg/dL (8.5-10.1); CREATININE 0.6 mg/dL (0.6-1.3); MAGNESIUM 1.6 mg/dL (1.8-2.4); PHOSPHORUS 3.6 mg/dL (2.5-4.9); POTASSIUM 3.8 mmol/L (3.5-5.1); TOTAL PROTEIN, SERUM 7.3 g/dL (6.4-8.2)
--- NOTE | 2021-12-01 07:50 | NUR ---
RN OPENING NOTES PATIENT AWAKE IN BED RESTING, A/O X 4. NO S/S OF PAIN NOTED AT THIS TIME. PATIENT ON ROOM AIR NO DISTRESS OR SHORTNESS OF BREATH NOTED. IV ACCESS LFA #20G, PATENT AND FLUSHING WELL. PATIENT HAVE LEFT LEG WOUND VAC, IN PLACE, DRAINING WELL. PATIENT HAVE A MADDEN CATHETER, IN PLACE, DRAINING WELL. FALL AND SAFETY MEASURES IN PLACE, BED ALARM ON, BED IN LOW AND LOCK POSITION, CALL LIGHT AND TABLE WITHIN EASY REACH, SIDE RAILS UP X2. WILL CONTINUE TO MONITOR.
[2021-12-01 08:00] VITALS: BP 140/72
[2021-12-01] MEDS: ATORVASTATIN 40 MG TABLET PO SCH (09:07)
[2021-12-01] MEDS: METFORMIN 500 MG TABLET PO SCH ×2 (09:07→16:41)
[2021-12-01] MEDS: Magnesium 1GM/D5W 100ML PREMIX 100 ML IV SCH ×2 (09:07→10:40)
[2021-12-01] MEDS: ZINC SULFATE 220 MG CAPSULE PO SCH (09:07)
[2021-12-01] MEDS: FERROUS SULFATE (325 MG) 325 MG/TAB TABLET PO SCH (09:08)
[2021-12-01] MEDS: FOLIC ACID 1 MG TABLET PO SCH (09:08)
[2021-12-01] MEDS: PANTOPRAZOLE 40 MG TABLET.DR PO SCH (09:08)
[2021-12-01] MEDS: BENAZEPRIL HCL 20 MG TABLET PO SCH (09:08)
[2021-12-01] MEDS: MULTIVIT W/MINERALS 1 TAB TABLET PO SCH (09:08)
[2021-12-01] MEDS: ASCORBIC ACID 500 MG TABLET PO SCH (09:09)
[2021-12-01] MEDS: CYANOCOBALAMIN 500 MCG TABLET PO SCH (09:09)
[2021-12-01] MEDS: GLUCERNA SHAKE 237 ML CAN PO SCH ×2 (09:12→16:42)
[2021-12-01] MEDS: POLYVINYL ALCOHOL/POVIDONE 0.4 ML DROPERETTE EACHEYE SCH ×2 (09:22→16:41)
[2021-12-01] MEDS: INSULIN REGULAR, HUMAN 100 UNIT/ML 3 ML VIAL SQ PRN ×2 (12:18→17:44)
[2021-12-01] MEDS: IV NS 0.9% 1,000 ML IV PRN (13:47)
[2021-12-01 16:00] VITALS: BP 142/75
[2021-12-01] MEDS: VANCOMYCIN HCL 0.75 GM in IV D5W 250 ML IV SCH (16:41)
--- NOTE | 2021-12-01 18:53 | NUR ---
RN CLOSING NOTES PATIENT AWAKE IN BED RESTING, A/O X 4. NO S/S OF PAIN NOTED AT THIS TIME. PATIENT ON ROOM AIR NO DISTRESS OR SHORTNESS OF BREATH NOTED. IV ACCESS LFA #20G, PATENT AND FLUSHING WELL. PATIENT HAVE LEFT LEG WOUND VAC, IN PLACE, DRAINING WELL, OUTPUT APPROXIMATELY 10ML . PATIENT HAVE A MADDEN CATHETER, IN PLACE, DRAINING WELL, OUTPUT 3000ML. FALL AND SAFETY MEASURES IN PLACE, BED ALARM ON, BED IN LOW AND LOCK POSITION, CALL LIGHT AND TABLE WITHIN EASY REACH, SIDE RAILS UP X2. WILL ENDORSE TO HEAD SETTER.
--- NOTE | 2021-12-01 19:40 | NUR ---
MS RN OPENING NOTE PATIENT AWAKE IN BED, A/O X 4, PT ABLE TO MAKE NEEDS KNOWN, URDU SPEAKING. PT DENIES PAIN AT THIS TIME. PATIENT STABLE ON ROOM AIR, NO S/S OF DISTRESS OR SHORTNESS OF BREATH NOTED, BREATHING EVEN AND UNLABORED. IV ACCESS LFA #20G INTACT AND RUNNING NS @ 75 ML/HR. LEFT LEG WOUND VAC IN PLACE, DRAINING SEROSANGUINEOUS FLUID. MADDEN CATHETER, IN PLACE AND DRAINING YELLOW URINE. FALL AND SAFETY MEASURES IN PLACE: BED ALARM ON, BED LOCKED IN LOW POSITION, CALL LIGHT AND TABLE WITHIN REACH, SIDE RAILS UP X2. WILL CONTINUE TO MONITOR PATIENT
[2021-12-01 20:00] VITALS: BP 124/72
[2021-12-01] MEDS: ENOXAPARIN SODIUM 40 MG/0.4 ML DISP.SYRIN SQ SCH (21:26)
[2021-12-02] MEDS: IV NS 0.9% 1,000 ML IV PRN ×2 (03:24→16:22)
[2021-12-02] MEDS: VANCOMYCIN HCL 0.75 GM in IV D5W 250 ML IV SCH ×2 (05:13→16:07)
[2021-12-02 06:13] LABS: BASOPHILS % (AUTO) 0.5 % (0.0-2.0); EOSINOPHILS % (AUTO) 2.1 % (0.0-6.0); HEMATOCRIT 26 % (39-51); HEMOGLOBIN 8.7 g/dL (13.5-17.5); LYMPHOCYTES # (AUTO) 1.8 K/uL (0.8-4.8); LYMPHOCYTES % (AUTO) 30.3 % (20.0-44.0); MEAN CORPUSCULAR HGB CONC 34 g/dl (31.0-36.0); MEAN CORPUSCULAR VOLUME 86 fL (80-96); MONOCYTES # (AUTO) 0.3 K/uL (0.1-1.30); MONOCYTES % (AUTO) 4.6 % (2.0-12.0); NEUTROPHILS # (AUTO) 3.7 K/uL (1.8-8.9); NEUTROPHILS % (AUTO) 62.5 % (43.0-81.0); PLATELET COUNT (AUTO) 333 K/uL (150-450); RED BLOOD CELL COUNT(AUTO) 3.01 MIL/uL (4.5-6.0)
[2021-12-02 06:46] LABS: CALCIUM, SERUM 8.1 mg/dL (8.5-10.1); CREATININE 0.7 mg/dL (0.6-1.3); MAGNESIUM 1.9 mg/dL (1.8-2.4); PHOSPHORUS 3.1 mg/dL (2.5-4.9); POTASSIUM 4.2 mmol/L (3.5-5.1)
[2021-12-02] MEDS: BLOOD SUGAR DIAGNOSTIC 1 EACH STRIP IN SCH ×4 (06:56→21:29)
--- NOTE | 2021-12-02 07:00 | NUR ---
MS RN CLOSING NOTE PATIENT AWAKE IN BED, A/O X 3, PT ABLE TO MAKE NEEDS KNOWN, IRISH SPEAKING. PT DENIES PAIN AT THIS TIME. PATIENT STABLE ON ROOM AIR, NO S/S OF DISTRESS OR SHORTNESS OF BREATH NOTED, BREATHING EVEN AND UNLABORED. IV ACCESS LFA #20G INTACT AND RUNNING NS @ 75 ML/HR. LEFT LEG WOUND VAC IN PLACE, DRAINING SEROSANGUINEOUS FLUID, MINIMAL OUTPUT ABOUT 10 ML. MADDEN CATHETER, IN PLACE AND DRAINING YELLOW URINE. MEDICATIONS GIVEN ORDERED, PT NEEDS MET THROUGHOUT SHIFT. NO SIGNIFICANT CHANGES THROUGHOUT SHIFT. FALL AND SAFETY MEASURES IN PLACE: BED ALARM ON, BED LOCKED IN LOW POSITION, CALL LIGHT AND TABLE WITHIN REACH, SIDE RAILS UP X2. ENDORSED TO DAY SHIFT NURSE FOR CONTINUITY OF CARE
--- NOTE | 2021-12-02 07:37 | NUR ---
RN OPENING NOTES PATIENT AWAKE IN BED RESTING, A/O X 3-4. NO S/S OF PAIN NOTED AT THIS TIME. PATIENT ON ROOM AIR NO DISTRESS OR SHORTNESS OF BREATH NOTED. IV ACCESS LFA #20G, PATENT AND FLUSHING WELL. PATIENT HAVE LEFT LEG WOUND VAC, IN PLACE, DRAINING WELL. PATIENT HAVE A MADDEN CATHETER, IN PLACE, DRAINING WELL. FALL AND SAFETY MEASURES IN PLACE, BED ALARM ON, BED IN LOW AND LOCK POSITION, CALL LIGHT AND TABLE WITHIN EASY REACH, SIDE RAILS UP X2. WILL CONTINUE TO MONITOR.
[2021-12-02] MEDS: METFORMIN 500 MG TABLET PO SCH ×2 (08:58→16:08)
[2021-12-02] MEDS: ASCORBIC ACID 500 MG TABLET PO SCH (08:59)
[2021-12-02] MEDS: CYANOCOBALAMIN 500 MCG TABLET PO SCH (08:59)
[2021-12-02] MEDS: ATORVASTATIN 40 MG TABLET PO SCH (08:59)
[2021-12-02] MEDS: ZINC SULFATE 220 MG CAPSULE PO SCH (09:00)
[2021-12-02] MEDS: PANTOPRAZOLE 40 MG TABLET.DR PO SCH (09:00)
[2021-12-02] MEDS: FERROUS SULFATE (325 MG) 325 MG/TAB TABLET PO SCH (09:00)
[2021-12-02] MEDS: MULTIVIT W/MINERALS 1 TAB TABLET PO SCH (09:00)
[2021-12-02] MEDS: BENAZEPRIL HCL 20 MG TABLET PO SCH (09:00)
[2021-12-02] MEDS: FOLIC ACID 1 MG TABLET PO SCH (09:00)
[2021-12-02] MEDS: GLUCERNA SHAKE 237 ML CAN PO SCH ×2 (09:01→16:08)
[2021-12-02] MEDS: INSULIN REGULAR, HUMAN 100 UNIT/ML 3 ML VIAL SQ PRN ×2 (11:53→17:34)
[2021-12-02] MEDS: POLYVINYL ALCOHOL/POVIDONE 0.4 ML DROPERETTE EACHEYE SCH ×2 (16:03→18:40)
--- NOTE | 2021-12-02 18:47 | NUR ---
RN CLOSING NOTES PATIENT AWAKE IN BED RESTING, A/O X 3-4. NO S/S OF PAIN NOTED AT THIS TIME. PATIENT ON ROOM AIR NO DISTRESS OR SHORTNESS OF BREATH NOTED. IV ACCESS LFA #20G, PATENT AND FLUSHING WELL. PATIENT HAVE LEFT LEG WOUND VAC, IN PLACE, DRAINING WELL OUT PUT LESS THAN 10ML. PATIENT HAVE A MADDEN CATHETER, IN PLACE, DRAINING WELL, OUTPUT OF 1900ML. FALL AND SAFETY MEASURES IN PLACE, BED ALARM ON, BED IN LOW AND LOCK POSITION, CALL LIGHT AND TABLE WITHIN EASY REACH, SIDE RAILS UP X2. WILL ENDORSE TO PAPER CORE MACHINE OPERATOR.
--- NOTE | 2021-12-02 19:20 | NUR ---
MS/RN OPENING NOTE RECEIVED PATIENT RESTING IN BED. AWAKE, ALERT AND ORIENTED X 3. ABLE TO MAKE NEEDS KNOWN. DENIES PAIN AT THIS TIME. CONTINUES ON ROOM AIR WITH NO S/SX OF RESPIRATORY DISTRESS NOTED. IV ACCESS TO LEFT FOREARM #20G INTACT AND PATENT. CONTINUES ON IVF NS @ 75ML/HR. CONTINUES ON IV ABX. MADDEN CATHETER IN PLACE DRAINING CLEAR, YELLOW URINE. WOUND VAC IN PLACE TO LEFT BKA WITH MINIMAL OUTPUT NOTED. CALL LIGHT WITHIN REACH. ASPIRATION, FALL AND SAFETY PRECAUTIONS MAINTAINED. WILL CONTINUE TO MONITOR.
[2021-12-02] MEDS: ENOXAPARIN SODIUM 40 MG/0.4 ML DISP.SYRIN SQ SCH (21:29)
[2021-12-03] MEDS: VANCOMYCIN HCL 0.75 GM in IV D5W 250 ML IV SCH ×2 (04:46→17:45)
[2021-12-03] MEDS: IV NS 0.9% 1,000 ML IV PRN (04:53)
--- NOTE | 2021-12-03 06:10 | NUR ---
MS/RN CLOSING NOTE PATIENT CURRENTLY RESTING IN BED. AWAKE, ALERT AND ORIENTED X 3. ABLE TO MAKE NEEDS KNOWN. DENIES PAIN AT THIS TIME. CONTINUES ON ROOM AIR WITH NO S/SX OF RESPIRATORY DISTRESS NOTED. IV ACCESS TO LEFT FOREARM #20G INTACT AND PATENT. CONTINUES ON IVF NS @ 75ML/HR. CONTINUES ON IV ABX. MADDEN CATHETER IN PLACE DRAINING CLEAR, YELLOW URINE. WOUND VAC IN PLACE TO LEFT BKA WITH MINIMAL OUTPUT NOTED. CALL LIGHT WITHIN REACH. ASPIRATION, FALL AND SAFETY PRECAUTIONS MAINTAINED. WILL ENDORSE PLAN OF CARE TO ONCOMING SHIFT.
[2021-12-03] MEDS: BLOOD SUGAR DIAGNOSTIC 1 EACH STRIP IN SCH ×4 (06:19→22:54)
[2021-12-03 06:53] LABS: BASOPHILS % (AUTO) 0.5 % (0.0-2.0); EOSINOPHILS % (AUTO) 2.1 % (0.0-6.0); HEMATOCRIT 25 % (39-51); HEMOGLOBIN 8.4 g/dL (13.5-17.5); LYMPHOCYTES # (AUTO) 1.7 K/uL (0.8-4.8); LYMPHOCYTES % (AUTO) 29.7 % (20.0-44.0); MEAN CORPUSCULAR HGB CONC 34 g/dl (31.0-36.0); MEAN CORPUSCULAR VOLUME 86 fL (80-96); MONOCYTES # (AUTO) 0.3 K/uL (0.1-1.30); NEUTROPHILS # (AUTO) 3.5 K/uL (1.8-8.9); NEUTROPHILS % (AUTO) 62.7 % (43.0-81.0); PLATELET COUNT (AUTO) 321 K/uL (150-450); RED BLOOD CELL COUNT(AUTO) 2.88 MIL/uL (4.5-6.0); WHITE BLOOD COUNT (AUTO) 5.6 K/uL (4.3-11.0)
[2021-12-03 07:09] LABS: CALCIUM, SERUM 8.2 mg/dL (8.5-10.1); CREATININE 0.6 mg/dL (0.6-1.3); MAGNESIUM 1.7 mg/dL (1.8-2.4); PHOSPHORUS 3.2 mg/dL (2.5-4.9); POTASSIUM 3.9 mmol/L (3.5-5.1)
--- NOTE | 2021-12-03 07:25 | NUR ---
MS/RN OPENING NOTE RECEIVED PATIENT RESTING IN BED. AWAKE, ALERT AND ORIENTED X 3-4. ABLE TO MAKE NEEDS KNOWN. DENIES PAIN AT THIS TIME. CONTINUES ON ROOM AIR WITH NO S/SX OF RESPIRATORY DISTRESS NOTED. IV ACCESS TO LEFT FOREARM #20G INTACT AND PATENT, ONGOING IVF NS @ 75ML/HR, INFUSING WELL, NO S/SX OF INFILTRATION NOTED. CONTINUES ON IV ABX. MADDEN CATHETER IN PLACE DRAINING CLEAR, YELLOW URINE. WOUND VAC IN PLACE TO LEFT BKA WITH MINIMAL OUTPUT NOTED. CALL LIGHT WITHIN REACH. ASPIRATION, FALL AND SAFETY PRECAUTIONS MAINTAINED. WILL CONTINUE TO MONITOR ACCORDINGLY.
[2021-12-03] MEDS: GLUCERNA SHAKE 237 ML CAN PO SCH ×2 (07:34→16:58)
[2021-12-03] MEDS: PANTOPRAZOLE 40 MG TABLET.DR PO SCH (07:34)
[2021-12-03] MEDS: MULTIVIT W/MINERALS 1 TAB TABLET PO SCH (08:25)
[2021-12-03] MEDS: METFORMIN 500 MG TABLET PO SCH ×2 (08:25→16:52)
[2021-12-03] MEDS: ATORVASTATIN 40 MG TABLET PO SCH (08:26)
[2021-12-03] MEDS: FOLIC ACID 1 MG TABLET PO SCH (08:26)
[2021-12-03] MEDS: POLYVINYL ALCOHOL/POVIDONE 0.4 ML DROPERETTE EACHEYE SCH ×2 (08:26→16:51)
[2021-12-03] MEDS: CYANOCOBALAMIN 500 MCG TABLET PO SCH (08:26)
[2021-12-03] MEDS: FERROUS SULFATE (325 MG) 325 MG/TAB TABLET PO SCH (08:26)
[2021-12-03] MEDS: ASCORBIC ACID 500 MG TABLET PO SCH (08:26)
[2021-12-03] MEDS: BENAZEPRIL HCL 20 MG TABLET PO SCH (08:27)
[2021-12-03] MEDS: ZINC SULFATE 220 MG CAPSULE PO SCH (08:34)
[2021-12-03 08:57] VITALS: BP 135/87
[2021-12-03] MEDS: Magnesium 1GM/D5W 100ML PREMIX 100 ML IV SCH ×2 (10:43→11:44)
--- NOTE | 2021-12-03 11:29 | NUR ---
WOUND CARE FOLLOW UP: PT SEEN FOR WOUND VAC DRESSING CHANGE ON LEFT BELOW KNEE AMPUTATION STUMP. SKIN PREP AND VAC DRAPE APPLIED TO PERIWOUND AREA, ONE PIECE OF GRANUFOAM TO WOUND. VAC AT 125mmHg CONTINUOUS SETTING. PT TOLERATED WELL. PHOTO TAKEN BY RN. WILL FOLLOW.
[2021-12-03 15:55] VITALS: BP 139/70
--- NOTE | 2021-12-03 18:39 | NUR ---
MS/RN CLOSING NOTE PATIENT RESTING IN BED. AWAKE, ALERT AND ORIENTED X 3-4. ABLE TO MAKE NEEDS KNOWN. DENIES PAIN AT THIS TIME. ON ROOM AIR WITH NO S/SX OF RESPIRATORY DISTRESS NOTED. IV ACCESS TO LEFT FOREARM #20G INTACT AND PATENT, ONGOING IVF NS @ 75ML/HR, INFUSING WELL, NO S/SX OF INFILTRATION NOTED. MADDEN CATHETER IN PLACE DRAINING CLEAR, YELLOW URINE. WOUND VAC IN PLACE AT 125 MMHG TO LEFT BKA WITH MINIMAL OUTPUT NOTED. CALL LIGHT WITHIN REACH. ASPIRATION, FALL AND SAFETY PRECAUTIONS MAINTAINED. ALL NEEDS ATTENDED AND MET. DUE MEDS GIVEN ORDERED. WILL ENDORSE TO ONCMING SHIFT FOR KIRBY.
--- NOTE | 2021-12-03 19:30 | NUR ---
MS RN OPENING RECEIVED PATIENT IN BED WITH EYES CLOSED, EASY TO AROUSE. NO S/S OF APPARENT DISTRESS IN ROOM AIR. DENIES PAIN AT THIS TIME. WOUND VAC ON LEFT BKA DRAINING SEROSANGUINEOUS. IV NS RUNNING @75CC/HR. MADDEN CATH DRAINING CLEAR, YELLOW URINE. SAFETY IN PLACE. WILL CONTINUE WITH PATIENT PLAN OF CARE.
[2021-12-03 20:37] VITALS: BP 124/63
[2021-12-03] MEDS: ENOXAPARIN SODIUM 40 MG/0.4 ML DISP.SYRIN SQ SCH (22:01)
[2021-12-04] MEDS: VANCOMYCIN HCL 0.75 GM in IV D5W 250 ML IV SCH ×2 (05:32→16:15)
[2021-12-04] MEDS: IV NS 0.9% 1,000 ML IV PRN (05:36)
[2021-12-04] MEDS: INSULIN REGULAR, HUMAN 100 UNIT/ML 3 ML VIAL SQ PRN ×2 (06:38→18:46)
[2021-12-04] MEDS: BLOOD SUGAR DIAGNOSTIC 1 EACH STRIP IN SCH ×4 (06:38→22:23)
[2021-12-04 06:39] LABS: BASOPHILS % (AUTO) 0.5 % (0.0-2.0); EOSINOPHILS % (AUTO) 2.1 % (0.0-6.0); HEMATOCRIT 27 % (39-51); HEMOGLOBIN 9.3 g/dL (13.5-17.5); LYMPHOCYTES # (AUTO) 1.4 K/uL (0.8-4.8); MEAN CORPUSCULAR HGB CONC 34 g/dl (31.0-36.0); MEAN CORPUSCULAR VOLUME 85 fL (80-96); MONOCYTES # (AUTO) 0.2 K/uL (0.1-1.30); MONOCYTES % (AUTO) 4.2 % (2.0-12.0); NEUTROPHILS # (AUTO) 3.2 K/uL (1.8-8.9); NEUTROPHILS % (AUTO) 65.2 % (43.0-81.0); PLATELET COUNT (AUTO) 333 K/uL (150-450)
[2021-12-04 07:18] LABS: CALCIUM, SERUM 8.3 mg/dL (8.5-10.1); CREATININE 0.6 mg/dL (0.6-1.3); MAGNESIUM 1.8 mg/dL (1.8-2.4); PHOSPHORUS 3.4 mg/dL (2.5-4.9); POTASSIUM 3.3 mmol/L (3.5-5.1)
--- NOTE | 2021-12-04 07:34 | NUR ---
ms rn note no significant change. report given to Lily for continuity of care.
--- NOTE | 2021-12-04 07:48 | NUR ---
MS RN OPENING NOTES RECEIVED Pt AWAKE IN BED. Pt IS A/Ox4 AT THIS TIME. NO COMPLAINTS OF PAIN OR SIGNS OF DISTRESS AT THIS TIME. Pt IS ON ROOM AIR AT THIS TIME AND TOLERATING WELL. IV ACCESS IS ON L FA WITH NS RUNNING AT 75mL/hr/ IV IS PATENT AND INTACT AND Pt IS TOLERATING WELL. SAFETY MEASURES ARE IN PLACE: BED IS LOCKED AND IN LOWEST POSITION. SIDE RAILS UPx2. BED SIDE TABLE AND CALL LIGHT ARE WITHIN REACH. WILL CONTINUE TO MONITOR THROUGHOUT THE SHIFT.
--- NOTE | 2021-12-04 08:02 | NUR ---
WOUND CARE FOLLOW UP: WOUND VAC FUNCTIONING WELL AT 125mmHg CONTINUOUS SETTING WITH 50cc RED DRAINAGE IN CANISTER. CANISTER HAS NOT BEEN CHANGED YET DUE TO LOW DRAINAGE AMOUNT. RECOMMEND SURGICAL FOLLOW UP.
[2021-12-04 08:32] VITALS: BP 132/72
[2021-12-04] MEDS: GLUCERNA SHAKE 237 ML CAN PO SCH ×2 (08:32→17:36)
[2021-12-04] MEDS: CYANOCOBALAMIN 500 MCG TABLET PO SCH (08:40)
[2021-12-04] MEDS: ASCORBIC ACID 500 MG TABLET PO SCH (08:40)
[2021-12-04] MEDS: MULTIVIT W/MINERALS 1 TAB TABLET PO SCH (08:40)
[2021-12-04] MEDS: FERROUS SULFATE (325 MG) 325 MG/TAB TABLET PO SCH (08:40)
[2021-12-04] MEDS: FOLIC ACID 1 MG TABLET PO SCH (08:40)
[2021-12-04] MEDS: METFORMIN 500 MG TABLET PO SCH ×2 (08:40→16:16)
[2021-12-04] MEDS: BENAZEPRIL HCL 20 MG TABLET PO SCH (08:40)
[2021-12-04] MEDS: ZINC SULFATE 220 MG CAPSULE PO SCH (08:40)
[2021-12-04] MEDS: ATORVASTATIN 40 MG TABLET PO SCH (08:41)
[2021-12-04] MEDS: PANTOPRAZOLE 40 MG TABLET.DR PO SCH (08:42)
[2021-12-04] MEDS: POLYVINYL ALCOHOL/POVIDONE 0.4 ML DROPERETTE EACHEYE SCH ×2 (08:43→16:15)
[2021-12-04] MEDS ORDERED: POTASSIUM CHLORIDE 20 MEQ TAB.PRT.SR PO SCH (10:30)
[2021-12-04 16:00] VITALS: BP 140/87
--- NOTE | 2021-12-04 18:58 | NUR ---
MS RN CLOSING NOTES Pt IS IN BED, RESTING. Pt IS A/Ox4. Pt IS A MOHAWK SPEAKER. NO COMPLAINTS OF PAIN OR SIGNS OF DISTRESS MADE. BREATHING ON ROOM AIR AND TOLERATING WELL. IV ACCESS ON L FA WITH NS RUNNING AT 75mL/HR. SAFETY MEASURES ARE IN PLACE. BED IS LOCKED AND IN LOWEST POSITION, SIDE RAILS UPx3. CALL LIGHT AND BED SIDE TABLE ARE WITHIN REACH. WILL ENDORSE TO ONCOMING SHIFT.
--- NOTE | 2021-12-04 19:30 | NUR ---
MS RN OPENING RECEIVED PATIENT IN BED AWAKE ON HIS PHONE. NO S/S OF APPARENT DISTRESS IN ROOM AIR. DENIES PAIN AT THIS TIME. WOUND VAC ON LEFT BKA DRAINING SEROSANGUINEOUS. IV NS RUNNING NOT RUNNING AT THIS TIME. MADDEN CATH DRAINING CLEAR, YELLOW URINE. SAFETY IN PLACE. WILL CONTINUE WITH PATIENT PLAN OF CARE.
[2021-12-04 20:00] VITALS: BP 130/65
[2021-12-04] MEDS: ENOXAPARIN SODIUM 40 MG/0.4 ML DISP.SYRIN SQ SCH (21:06)
--- NOTE | 2021-12-04 22:24 | NUR ---
MS RN NOTE PATIENT BLOOD SUGAR 66 EVEN SNACKS WERE GIVEN AN HOUR EARLIER. INITIATED PROTOCOL GLUCAGON BUT WE DO NOT HAVE IT ON THE FLOOR. SENT FAX TO NURSING ROOM SERVICE WAITER FOR THE ORDER. CALLED MICHELLE SHE SAID SHE'LL LOOK INTO IT. AWAITING FOR MEDICATION.
[2021-12-04] MEDS ORDERED: GLUCAGON,HUMAN RECOMBINANT 1 MG/VIAL VIAL ONE (22:32)
--- NOTE | 2021-12-05 03:45 | NUR ---
MS RN REASSESSMENT BLOOD SUGAR 131.
[2021-12-05] MEDS: VANCOMYCIN HCL 0.75 GM in IV D5W 250 ML IV SCH (05:00)
[2021-12-05 06:56] LABS: BASOPHILS % (AUTO) 0.5 % (0.0-2.0); EOSINOPHILS % (AUTO) 1.9 % (0.0-6.0); HEMATOCRIT 25 % (39-51); HEMOGLOBIN 8.5 g/dL (13.5-17.5); LYMPHOCYTES # (AUTO) 1.7 K/uL (0.8-4.8); LYMPHOCYTES % (AUTO) 25.2 % (20.0-44.0); MEAN CORPUSCULAR HGB CONC 34 g/dl (31.0-36.0); MEAN CORPUSCULAR VOLUME 85 fL (80-96); MONOCYTES # (AUTO) 0.3 K/uL (0.1-1.30); MONOCYTES % (AUTO) 4.2 % (2.0-12.0); NEUTROPHILS # (AUTO) 4.6 K/uL (1.8-8.9); NEUTROPHILS % (AUTO) 68.2 % (43.0-81.0); PLATELET COUNT (AUTO) 292 K/uL (150-450); RED BLOOD CELL COUNT(AUTO) 2.93 MIL/uL (4.5-6.0); WHITE BLOOD COUNT (AUTO) 6.8 K/uL (4.3-11.0)
[2021-12-05] MEDS: IV NS 0.9% 1,000 ML IV PRN (06:56)
[2021-12-05] MEDS: INSULIN REGULAR, HUMAN 100 UNIT/ML 3 ML VIAL SQ PRN ×2 (06:58→12:21)
--- NOTE | 2021-12-05 07:30 | NUR ---
MS RN OPENING NOTES RECEIVED PATIENT IN BED AWAKE, A/O X4, AMERICAN SPEAKING. NO S/SX OF RESPIRATORY DISTRESS NOTED. NO PAIN VERBALIZED AT THIS TIME. WOUND VAC ON LEFT BKA DRAINING SCANT SEROSANGUINEOUS DRAINAGE. L WRIST G#20 INTACT AND PATENT. MADDEN CATH INTACT AND PATENT DRAINING CLEAR, YELLOW URINE. SAFETY MEASURES IN PLACE: BED LOWEST POSITION, BED LOCKED, CALL LIGHT WITHIN REACH. WILL CONTINUE TO MONITOR.
[2021-12-05 07:34] LABS: CALCIUM, SERUM 9.1 mg/dL (8.5-10.1); CREATININE 0.8 mg/dL (0.6-1.3); MAGNESIUM 1.7 mg/dL (1.8-2.4); PHOSPHORUS 3.1 mg/dL (2.5-4.9); POTASSIUM 4.3 mmol/L (3.5-5.1)
--- NOTE | 2021-12-05 07:38 | NUR ---
MS RN CLOSING REPORT GIVEN TO WILLA. NO SIGNIFICANT CHANGE.
[2021-12-05] MEDS: BLOOD SUGAR DIAGNOSTIC 1 EACH STRIP IN SCH ×2 (07:54→12:19)
[2021-12-05 08:00] VITALS: BP 126/72
[2021-12-05] MEDS: PANTOPRAZOLE 40 MG TABLET.DR PO SCH (08:17)
[2021-12-05] MEDS: METFORMIN 500 MG TABLET PO SCH (08:17)
[2021-12-05] MEDS: ZINC SULFATE 220 MG CAPSULE PO SCH (08:17)
[2021-12-05] MEDS: MULTIVIT W/MINERALS 1 TAB TABLET PO SCH (08:17)
[2021-12-05] MEDS: ASCORBIC ACID 500 MG TABLET PO SCH (08:17)
[2021-12-05 08:18] VITALS: BP 135/73
[2021-12-05] MEDS: BENAZEPRIL HCL 20 MG TABLET PO SCH (08:18)
[2021-12-05] MEDS: CYANOCOBALAMIN 500 MCG TABLET PO SCH (08:22)
[2021-12-05] MEDS: ATORVASTATIN 40 MG TABLET PO SCH (08:23)
[2021-12-05] MEDS: FOLIC ACID 1 MG TABLET PO SCH (08:23)
[2021-12-05] MEDS: FERROUS SULFATE (325 MG) 325 MG/TAB TABLET PO SCH (08:23)
[2021-12-05] MEDS: GLUCERNA SHAKE 237 ML CAN PO SCH (08:24)
[2021-12-05] MEDS: POLYVINYL ALCOHOL/POVIDONE 0.4 ML DROPERETTE EACHEYE SCH (08:24)
[2021-12-05] MEDS ORDERED: DOXY100C2 PO (08:45)
[2021-12-05] MEDS ORDERED: VANC750P13 IV (08:45)
[2021-12-05] MEDS ORDERED: MAGNESIUM OXIDE 400 MG TABLET PO ONE (09:30)
--- NOTE | 2021-12-05 10:01 | NUR ---
WOUND CARE: PT SEEN FOR DRESSING CHANGE BEFORE DISCHARGE. WOUND VAC DRESSING REMOVED. WOUND MEASURES 2.5CM X 4.5CM X 3CM WITH RED GRANULATION TISSUE AND SMALL AMOUNT OF SEROSANGUINOUS DRAINAGE, NO ODOR. PERIWOUND AREA OF STUMP HAS VERY SLIGHT REDNESS (PRESENT ON ADMISSION). VAC CANISTER DISCARDED WITH 75cc RED DRAINAGE. PHOTO TAKEN AND PLACED IN CHART. WOUND DRESSED WITH BETADINE SOAKED KERLIX, COVERED WITH GAUZE, ABD PAD, WRAPPED WITH KERLIX AND PROTECTED WITH BURN NET. PT TOLERATED WELL. VAC DISCONTINUED. DISCUSSED SKIN PROTECTION WITH NURSING STAFF. LEFT LOWER EXTREMITY STUMP ELEVATED ON PILLOW. IN AGREEMENT WITH PLAN OF CARE.
--- NOTE | 2021-12-05 17:50 | NUR ---
SEWAGE TREATMENT PLANT OPERATOR NOTES PATIENT IS MEDICALLY STABLE FOR DISCHARGE. REPORT WAS GIVEN TO TAILOR HELPER, AT [facility]. PATIENT WAS GIVEN DISCHARGE INSTRUCTIONS WITH EXIT CARE PACKET. PATIENT VERBALIZED UNDERSTANDING OF DISCHARGE PLAN. IV ACCESS AND MADDEN CATH KEPT IN PLACE PER NURSE AND KIRBY. ALL BELONGINGS ACCOUNTED FOR AND FORMS SIGNED. PATIENT LEFT FACILITY ACCOMPANIED BY 2 EMT [facility]IA [facility].
== END 2021-12-05 18:45 | DRG 349 ==
LOC: ER 15:02 → TRANSITION 20:47 → MED 11-26 00:07 → TELE 11-26 01:37 → MED 11-29 15:44
PROVIDERS: ADMIT Registered Nurse; ATTEND Hospitalist
PROC: 0H9LXZZ Drainage of Left Lower Leg Skin, External Approach (ICD-10-PCS; principal; 2021-11-28)
DX: T87.44 Infection of amputation stump, left lower extremity (principal); L02.416 Cutaneous abscess of left lower limb; E11.42 Type 2 diabetes mellitus with diabetic polyneuropathy; E11.51 Type 2 diabetes mellitus with diabetic peripheral angiopathy without gangrene; N13.8 Other obstructive and reflux uropathy; I95.9 Hypotension, unspecified; L97.829 Non-pressure chronic ulcer of other part of left lower leg with unspecified severity; L03.116 Cellulitis of left lower limb; D64.9 Anemia, unspecified; Y83.8 Other surgical procedures as the cause of abnormal reaction of the patient, or of later complication, without mention of misadventure at the time of the procedure; Y92.129 Unspecified place in nursing home as the place of occurrence of the external cause; N40.1 Benign prostatic hyperplasia with lower urinary tract symptoms; I25.10 Atherosclerotic heart disease of native coronary artery without angina pectoris; I10 Essential (primary) hypertension; Z20.822 Contact with and (suspected) exposure to COVID-19; Z82.49 Family history of ischemic heart disease and other diseases of the circulatory system; Z83.3 Family history of diabetes mellitus; Z86.16 Personal history of COVID-19; Z95.0 Presence of cardiac pacemaker; E66.9 Obesity, unspecified; E78.5 Hyperlipidemia, unspecified; Z88.2 Allergy status to sulfonamides; Z89.511 Acquired absence of right leg below knee; E11.622 Type 2 diabetes mellitus with other skin ulcer; Z79.899 Other long term (current) drug therapy; Z68.29 Body mass index [BMI] 29.0-29.9, adult; Y83.5 Amputation of limb(s) as the cause of abnormal reaction of the patient, or of later complication, without mention of misadventure at the time of the procedure; Z79.84 Long term (current) use of oral hypoglycemic drugs
CPT/HCPCS: 36415; 73700-TC; 80048-TC; 80053-TC; 80202-TC; 82962-TC; 83735-TC; 84100-TC; 84443-TC; 85025-TC; 85610-TC; 85730-TC; 87040-TC; 87070-TC; 87075-TC; 87081-TC; 93926-TC; 97530-TC; A4217; A6253; A6403; C9803; G0378; J1100; J1170; J1610; J1650; J1815; J1885; J2405; J2704; J3370; J3475; J3490; J7030; J7040; J7060

== ENCOUNTER 2023-03-04 21:28 | Inpatient (IN) | payer MEDICAID ==
[~2023-03-04] VITALS: Ht 177.8 cm; Wt 68.2 kg
[~2023-03-04 21:28] MED LIST: ACET-868 PO; ASCO-352 PO; ATOR40TA PO; BENA40TA8 PO; CYAN-51 PO; DOXY100C2 PO; FERR325T24 PO; FOLI0.4T6 PO; GLUC1KIT IM; METF-440 PO; MULT-447 PO; POLY15DR40 EACHEYE; VANC750P13 IV; ZINC220C6 PO
--- NOTE | 2023-03-04 21:45 | NUR ---
[id number] from home noted with BS 316, and weakness x today. PLACED IN BED, AAOX3, BREATHING EVEN AND UNLABORED SATURATING AT 96%RA
--- NOTE | 2023-03-04 22:15 | NUR ---
BLOOD DRAWN AND SENT TO LAB
[2023-03-04] MEDS ORDERED: INSULIN REGULAR, HUMAN 100 UNIT/ML 10 ML VIAL ONE (22:27)
[2023-03-04] MEDS ORDERED: IV NS 0.9% 1,000 ML BAG IV ONE (22:30)
[2023-03-04] MEDS ORDERED: INSULIN REGULAR, HUMAN 100 UNIT/ML 10 ML VIAL IV ONE (22:30)
[2023-03-04 22:51] LABS: BASOPHILS % (AUTO) 0.6 % (0.0-2.0); EOSINOPHILS % (AUTO) 1.8 % (0.0-6.0); HEMATOCRIT 33 % (39-51); LYMPHOCYTES # (AUTO) 1.3 K/uL (0.8-4.8); LYMPHOCYTES % (AUTO) 15.4 % (20.0-44.0); MEAN CORPUSCULAR HGB CONC 33 g/dl (31.0-36.0); MEAN CORPUSCULAR VOLUME 80 fL (80-96); MONOCYTES # (AUTO) 0.3 K/uL (0.1-1.30); MONOCYTES % (AUTO) 3.7 % (2.0-12.0); NEUTROPHILS # (AUTO) 6.5 K/uL (1.8-8.9); NEUTROPHILS % (AUTO) 78.5 % (43.0-81.0); PLATELET COUNT (AUTO) 250 K/uL (150-450); RED BLOOD CELL COUNT(AUTO) 4.17 MIL/uL (4.5-6.0); WHITE BLOOD COUNT (AUTO) 8.3 K/uL (4.3-11.0)
[2023-03-04 23:10] LABS: CALCIUM, SERUM 8.8 mg/dL (8.5-10.1); CARBON DIOXIDE 28 mmol/L (21-32); CHLORIDE 103 mmol/L (98-107); GLUCOSE 270 mg/dL (74-106); POTASSIUM 3.3 mmol/L (3.5-5.1); SODIUM SERUM 137 mmol/L (136-145); UREA NITROGEN, BLOOD 9 mg/dL (7-18)
[2023-03-04 23:13] LABS: ALANINE AMINOTRANSFERASE 24 U/L (12-78); ALBUMIN 2.8 g/dL (3.4-5.0); ALKALINE PHOSPHATASE 171 U/L (46-116); ASPARTATE AMINOTRANSFERASE 20 U/L (15-37); BILIRUBIN,DIRECT 0.1 mg/dL (0.0-0.2); BILIRUBIN,TOTAL 0.2 mg/dL (0.2-1.0); LIPASE 330 U/L (73-393); TOTAL PROTEIN, SERUM 7.3 g/dL (6.4-8.2)
--- NOTE | 2023-03-04 23:28 | NUR ---
URINE SAMPLE SENT TO LAB
[2023-03-04 23:58] LABS: BILIRUBIN,URINE NEGATIVE (NEGATIVE); COLOR,URINE YELLOW (YELLOW); LEUKOCYTE ESTERASE ,URINE TRACE (NEGATIVE); NITRITE, URINE POSITIVE (NEGATIVE); PH,URINE 7.5 (5.0-8.0); PROTEIN,URINE 2+ mg/dl (NEGATIVE); UGLUCOSE 3+ mg/dL (NEGATIVE); UROBILINOGEN,URINE 0.2 EU/dL (0.2)
[2023-03-05 00:27] LABS: BACTERIA,URINE Many /HPF (None Seen); WBC,URINE 0-2 /HPF (0-3)
[2023-03-05 00:28] LABS: SQUAMOUS EPITHELIAL CELL,UR Few /HPF (None Seen)
[2023-03-05] MEDS ORDERED: CIPROFLOXACIN HCL 500 MG TABLET PO ONE (01:00)
--- NOTE | 2023-03-05 01:10 | NUR ---
BS ACCUCHECK [id number]
[2023-03-05] MEDS ORDERED: CIPROFLOXACIN HCL 500 MG TABLET ONE (01:24)
--- NOTE | 2023-03-05 01:27 | NUR ---
RN NOTE CIPRO GIVEN ORDERED.
--- NOTE | 2023-03-05 02:18 | NUR ---
MOVE SHEET SUBMITTED
[2023-03-05] MEDS ORDERED: *INSULIN REGULAR(HUMULIN R)HUM 100 UNIT/ML VIAL SQ PRN (03:00)
[2023-03-05] MEDS ORDERED: DEXTROSE 50%-WATER 50 ML DISP.SYRIN IV PRN ×2 (03:00)
[2023-03-05] MEDS ORDERED: MORPHINE SULFATE INJ 2 MG/ML DISP.SYRIN IV PRN (03:00)
[2023-03-05] MEDS ORDERED: ONDANSETRON HCL/PF 4 MG/2 ML VIAL IVP PRN (03:00)
[2023-03-05] MEDS ORDERED: ACETAMINOPHEN 325 MG TABLET PO PRN (03:00)
[2023-03-05] MEDS ORDERED: INSULIN REGULAR, HUMAN 100 UNIT/ML 3 ML VIAL SQ PRN (03:00)
[2023-03-05] MEDS: BLOOD SUGAR DIAGNOSTIC 1 EACH STRIP VI SCH ×5 (03:41→22:03)
[2023-03-05] MEDS ORDERED: BLOOD SUGAR DIAGNOSTIC 1 EACH STRIP IN SCH (07:30)
--- NOTE | 2023-03-05 07:41 | NUR ---
Report given to Ray for continuation of care
[2023-03-05] MEDS: HEPARIN SODIUM, PORCINE 5000 UNITS/1 ML VIAL SQ SCH ×2 (09:29→21:36)
[2023-03-05 09:30] VITALS: BP 115/85
--- NOTE | 2023-03-05 10:57 | NUR ---
SENIOR BOOKKEEPERMODEL DRESSER NOTES PT ADMITTED TO UNIT [facility]IA [facility] AT 0835 WITH DIAGNOSIS OF NSTEMI. PT IS A/O X4. [place] SPEAKING. PT ORIENTED TO STAFF AND ROOM. V/S TAKEN, STABLE AND RECORDED. PT ON ROOM, TOLERATING WELL, BREATHING EVEN AND UNLABORED. PHYSICAL ASSESSMENT DONE: PHOTOS OF SKIN ISSUES TAKEN AND FILED ON HIS CHART. IV ACCESS NOTED ON RAC #18G INTACT AND PATENT. LUNGS CLEAR ON AUSCULTATION. ABDOMEN SOFT, NON-TENDER WITH POSITIVE BOWEL SOUNDS PRESENT. PT WITH LEFT AKA AND RIGHT BKA. PACEMAKER IN PLACE TO RCW. 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 ABLE TO SEE CLEARLY ON LEFT EYE. FALL AND ALL SAFETY PRECAUTIONS IMPLEMENTED: HOB ELEVATED, BED IN LOWEST LOCKED POSITION, SIDE-RAILS UP X2, BED ALARM ON, CALL LIGHT WITHIN REACH. WILL CONTINUE TO MONITOR PT.
[2023-03-05] MEDS: INSULIN REGULAR, HUMAN 100 UNIT/ML 3 ML VIAL SQ PRN ×2 (11:46→16:58)
[2023-03-05 12:00] VITALS: BP 152/74
[2023-03-05 16:00] VITALS: BP 150/80
--- NOTE | 2023-03-05 16:06 | NUR ---
IVORY NOTES PATIENT NOTED WITH PLOW POTASSIUM 3.4 FROM .E.R. LAST NIGHT. REPORTED TO ESPERANZA LEWIS WITH ORDER TO CHECK POTASSIUM LEVEL TOMORROW AM AND REPORT. Addendum: 03/05/23 at 1848 by ELOINA ABRAHAM RN CORRECTION LOW K NOT FLOW.
[2023-03-05] MEDS ORDERED: INSULIN REGULAR, HUMAN 100 UNIT/ML 3 ML VIAL SQ ONE (17:15)
[2023-03-05] MEDS ORDERED: CEFTRIAXONE 1 G in IV D5W 50 ML IV SCH (18:00)
[2023-03-05] MEDS: POLYVINYL ALCOHOL 15 ML BOTTLE EACHEYE SCH (18:16)
--- NOTE | 2023-03-05 19:00 | NUR ---
RN OPENING NOTE RECEIVED PATIENT IN BED AWAKE. A/O X4. ABLE TO MAKE NEEDS KNOWN. [place] SPEAKING ONLY. ON ROOM AIR TOLERATING WELL. NO SOB, BREATHING EVENLY AND UNLABORED. IV ACCESS ON RIGHT AC #18 SALINE LOCK NOTED TO BE PATENT AND INTACT. WITH MADDEN CATHETER IN PLACED NOTED TO BE DRAINING CLEAR DARK YELLOW URINE. NO COMPLAINS OF PAIN OR DISCOMFORT AT THIS TIME. PER ENDORSEMENT FROM THE AM NURSE PATIENT IS NOT ON TELEMONITOR TRANSFERRED TO [facility] BUT NO ORDERS. SAFETY MEASURES MAINTAINED: BED LOCKED AND IN LOWEST POSITION, HOB SLIGHTLY ELEVATED, SIDE RAILS UP X2, CALL LIGHT AND BEDSIDE TABLE WITHIN PATIENT REACH.
--- NOTE | 2023-03-05 19:00 | NUR ---
RN OPENING NOTE RECEIVED PATIENT IN BED AWAKE. A/O X4. ABLE TO MAKE NEEDS KNOWN. [place] SPEAKING ONLY. ON ROOM AIR TOLERATING WELL. NO SOB, BREATHING EVENLY AND UNLABORED. IV ACCESS ON RIGHT AC #18 SALINE LOCK NOTED TO BE PATENT AND INTACT. WITH MADDEN CATHETER IN PLACED NOTED TO BE DRAINING CLEAR DARK YELLOW URINE. NO COMPLAINS OF PAIN OR DISCOMFORT AT THIS TIME. SAFETY MEASURES MAINTAINED: BED LOCKED AND IN LOWEST POSITION, HOB SLIGHTLY ELEVATED, SIDE RAILS UP X2, CALL LIGHT AND BEDSIDE TABLE WITHIN PATIENT REACH.
[2023-03-05 20:00] VITALS: BP 115/71
[2023-03-06 06:28] LABS: BASOPHILS % (AUTO) 0.7 % (0.0-2.0); EOSINOPHILS % (AUTO) 2.1 % (0.0-6.0); HEMATOCRIT 35 % (39-51); HEMOGLOBIN 11.5 g/dL (13.5-17.5); LYMPHOCYTES # (AUTO) 1.7 K/uL (0.8-4.8); LYMPHOCYTES % (AUTO) 27.8 % (20.0-44.0); MEAN CORPUSCULAR HGB CONC 33 g/dl (31.0-36.0); MEAN CORPUSCULAR VOLUME 81 fL (80-96); MONOCYTES # (AUTO) 0.3 K/uL (0.1-1.30); MONOCYTES % (AUTO) 5.2 % (2.0-12.0); NEUTROPHILS # (AUTO) 3.9 K/uL (1.8-8.9); NEUTROPHILS % (AUTO) 64.2 % (43.0-81.0); PLATELET COUNT (AUTO) 250 K/uL (150-450); RED BLOOD CELL COUNT(AUTO) 4.33 MIL/uL (4.5-6.0); WHITE BLOOD COUNT (AUTO) 6.1 K/uL (4.3-11.0)
--- NOTE | 2023-03-06 06:52 | NUR ---
317-1 RN CLOSING NOTE PATIENT IN BED AWAKE. A/O X4. ABLE TO MAKE NEEDS KNOWN. INDONES[place] SPEAKING ONLY. ON ROOM AIR TOLERATING WELL. NO SOB, BREATHING EVENLY AND UNLABORED. IV ACCESS ON RIGHT AC #18 SALINE LOCK NOTED TO BE PATENT AND INTACT. WITH MADDEN CATHETER IN PLACED NOTED TO BE DRAINING CLEAR DARK YELLOW URINE OUTPUT OF 1200CC. NO COMPLAINS OF PAIN OR DISCOMFORT AT THIS TIME.ALL DUE MEDICATIONS GIVEN. ALL NEEDS ARE MET. MADE SURE PATIENT IS CLEAN AND COMFORTABLE THROUGH OUT THE NIGHT. SAFETY MEASURES MAINTAINED: BED LOCKED AND IN LOWEST POSITION, HOB SLIGHTLY ELEVATED, SIDE RAILS UP X2, CALL LIGHT AND BEDSIDE TABLE WITHIN PATIENT REACH. WILL ENDORSE TO NEXT SHIFT NURSE FOR CONTINUITY OF CARE.
[2023-03-06 07:05] LABS: ALBUMIN 2.7 g/dL (3.4-5.0); BILIRUBIN,TOTAL 0.2 mg/dL (0.2-1.0); CALCIUM, SERUM 8.5 mg/dL (8.5-10.1); CREATININE 0.9 mg/dL (0.6-1.3); MAGNESIUM 1.8 mg/dL (1.8-2.4); PHOSPHORUS 4.3 mg/dL (2.5-4.9)
--- NOTE | 2023-03-06 07:46 | NUR ---
RN OPENING NOTE RECEIVED PATIENT AWAKE IN BED. A/O X4. ABLE TO MAKE NEEDS KNOWN. [place] SPEAKING ONLY. ON ROOM AIR AND TOLERATING WELL. NO SOB, BREATHING EVENLY AND UNLABORED. IV ACCESS ON RIGHT AC #18 SALINE LOCK NOTED TO BE PATENT AND INTACT. WITH MADDEN CATHETER IN PLACED NOTED TO BE DRAINING CLEAR DARK YELLOW URINE. NO COMPLAINS OF PAIN OR DISCOMFORT AT THIS TIME. PER ENDORSEMENT FROM THE WIPING RAG WASHER NURSE, PATIENT IS NOT ON TELEMONITOR AND TRANSFERRED TO [facility] BUT NO ORDERS. SAFETY MEASURES MAINTAINED: BED LOCKED AND IN LOWEST POSITION, HOB SLIGHTLY ELEVATED, SIDE RAILS UP X2, CALL LIGHT AND BEDSIDE TABLE WITHIN PATIENT REACH. WILL CONTINUE TO MONITOR PATIENT.
[2023-03-06 08:31] VITALS: BP 140/83
--- NOTE | 2023-03-06 08:32 | NUR ---
RN NOTE INFORMED AGRICULTURAL TECHNICIAN CYNTHIA LEWIS THAT PATIENT POTASSIUM IS 3.0, SHE ORDERED [id number] POX1. WILL CONTINUE TO MONITOR PATIENT.
[2023-03-06] MEDS ORDERED: ATORVASTATIN 40 MG TABLET PO SCH (09:00)
[2023-03-06] MEDS ORDERED: BENAZEPRIL HCL 20 MG TABLET PO SCH (09:00)
[2023-03-06] MEDS ORDERED: FERROUS SULFATE (325 MG) 325 MG/TAB TABLET PO SCH (09:00)
[2023-03-06] MEDS ORDERED: ASCORBIC ACID 500 MG TABLET PO SCH (09:00)
[2023-03-06] MEDS ORDERED: FOLIC ACID 1 MG TABLET PO SCH (09:00)
[2023-03-06] MEDS ORDERED: MULTIVIT W/MINERALS 1 TAB TABLET PO SCH (09:00)
[2023-03-06] MEDS ORDERED: CYANOCOBALAMIN 500 MCG TABLET PO SCH (09:00)
--- NOTE | 2023-03-06 09:00 | NUR ---
RN NOTE 3 HOME MEDS BROUGHT TO PHARMACY.
[2023-03-06] MEDS: HEPARIN SODIUM, PORCINE 5000 UNITS/1 ML VIAL SQ SCH (09:11)
[2023-03-06] MEDS: POLYVINYL ALCOHOL 15 ML BOTTLE EACHEYE SCH (09:12)
[2023-03-06] MEDS ORDERED: POTASSIUM CHLORIDE 20 MEQ TAB.PRT.SR PO ONE (10:00)
[2023-03-06] MEDS: BLOOD SUGAR DIAGNOSTIC 1 EACH STRIP VI SCH (11:42)
[2023-03-06] MEDS: INSULIN REGULAR, HUMAN 100 UNIT/ML 3 ML VIAL SQ PRN (11:44)
[2023-03-06] MEDS ORDERED: LEVO500T90 PO (12:36)
[2023-03-06 16:18] VITALS: BP 118/76
--- NOTE | 2023-03-06 16:27 | NUR ---
DISCHARGE NOTES PATIENT DISCHARGE HOME IN STABLE CONDITION. A/O X4. ABLE TO MAKE NEEDS KNOWN. PATIENT IS BREATHING EVENLY AND UNLABORED ON ROOM AIR, NO SIGNS OF DISTRESS NOTED. PT SKIN ISSUES PHOTO TAKEN AND RECORDED. WITH MADDEN CATHETER IN PLACE. DISCHARGE INSTRUCTIONS GIVEN VERBALLY AND IN WRITTEN FORM, PT VERBALIZED UNDERSTANDING. PATIENT ALL BELONGINGS ACCOUNTED FOR, BELONGING SHEET SIGNED BY PT. IV ACCESS ON RAC G#18 REMOVED, DRY DRESSING APPLIED AT SITE, NO SIGNS OF BLEEDING NOTED. NAME ARMBAND REMOVED. PATIENT LEFT UNIT AT 1626 VIA [facility] ACCOMPANIED BY 2 EMT'S. CHARGE NURSE AND DOCTOR AWARE OF D/C.
== END 2023-03-06 16:25 | disposition home or self-care (01) | DRG 420 ==
LOC: ER 21:29 → TELE 03-05 06:24 → MED 03-06 13:25
PROVIDERS: ADMIT Nurse Practitioner Acute Care; ATTEND Nurse Practitioner Acute Care
DX: E11.65 Type 2 diabetes mellitus with hyperglycemia (principal); I21.A1 Myocardial infarction type 2; E44.0 Moderate protein-calorie malnutrition; E11.40 Type 2 diabetes mellitus with diabetic neuropathy, unspecified; N39.0 Urinary tract infection, site not specified; E88.09 Other disorders of plasma-protein metabolism, not elsewhere classified; B96.89 Other specified bacterial agents as the cause of diseases classified elsewhere; E78.5 Hyperlipidemia, unspecified; E87.6 Hypokalemia; Z89.511 Acquired absence of right leg below knee; Z89.512 Acquired absence of left leg below knee; Z20.822 Contact with and (suspected) exposure to COVID-19; R27.8 Other lack of coordination; H40.139 Pigmentary glaucoma, unspecified eye; Z88.2 Allergy status to sulfonamides; Z79.899 Other long term (current) drug therapy; Z79.84 Long term (current) use of oral hypoglycemic drugs; I10 Essential (primary) hypertension; N40.0 Benign prostatic hyperplasia without lower urinary tract symptoms
CPT/HCPCS: 36415; 71045-TC; 80048-TC; 80053-TC; 80076-TC; 81001; 82010-TC; 82962-TC; 83690-TC; 83735-TC; 84100-TC; 84484-TC; 85025-TC; 85730-TC; 87081-TC; 87086-TC; 93307-TC; 97530-TC; A4223; C9803; G0378; J0696; J1644; J1815; J7060

== ENCOUNTER 2024-06-28 16:12 | Inpatient (IN) | payer MEDICAID ==
[~2024-06-28] VITALS: Ht 134.6 cm; Wt 55.0 kg
[~2024-06-28 16:12] MED LIST changes: -DOXY100C2 PO; +LEVO500T90 PO; -VANC750P13 IV
[2024-06-28] MEDS: IV NS 0.9% 1,000 ML BAG IV ONE (16:35)
[2024-06-28 16:55] LABS: BASOPHILS # (AUTO) 0.1 K/uL (0.0-0.2); BASOPHILS % (AUTO) 0.7 % (0.0-2.0); EOSINOPHILS % (AUTO) 0.1 % (0.0-6.0); HEMATOCRIT 38 % (39-51); HEMOGLOBIN 12.5 g/dL (13.5-17.5); LYMPHOCYTES # (AUTO) 1.4 K/uL (0.8-4.8); LYMPHOCYTES % (AUTO) 11.7 % (20.0-44.0); MEAN CORPUSCULAR HEMOGLOBIN 28 PG (26.0-33.0); MEAN CORPUSCULAR HGB CONC 33 g/dl (31.0-36.0); MEAN CORPUSCULAR VOLUME 84 fL (80-96); MONOCYTES # (AUTO) 0.6 K/uL (0.1-1.30); MONOCYTES % (AUTO) 4.8 % (2.0-12.0); NEUTROPHILS # (AUTO) 10.2 K/uL (1.8-8.9); NEUTROPHILS % (AUTO) 82.7 % (43.0-81.0); PLATELET COUNT (AUTO) 305 K/uL (150-450); RED BLOOD CELL COUNT(AUTO) 4.46 MIL/uL (4.5-6.0); RED CELL DISTRIBUTION WIDTH 15.1 % (11.5-15.0); WHITE BLOOD COUNT (AUTO) 12.3 K/uL (4.3-11.0)
[2024-06-28 17:06] LABS: CALCIUM, SERUM 8.5 mg/dL (8.5-10.1); CARBON DIOXIDE 19 mmol/L (21-32); CHLORIDE 89 mmol/L (98-107); CREATININE 6.4 mg/dL (0.6-1.3); GLUCOSE 306 mg/dL (74-106); POTASSIUM 3.8 mmol/L (3.5-5.1); SODIUM SERUM 129 mmol/L (136-145); UREA NITROGEN, BLOOD 74 mg/dL (7-18)
[2024-06-28 17:10] LABS: INR 0.99 (0.91-1.10); PARTIAL THROMBOPLASTIN TIME 24.1 SEC (24.3-34.3); PROTHROMBIN TIME 10.2 SECS (9.2-11.1)
[2024-06-28] MEDS: NOREPINEPHRINE 8 MG in IV D5W 242 ML IV ONE (17:10)
[2024-06-28] MEDS: IV NS 0.9% 500 ML BAG IV ONE (17:10)
[2024-06-28 17:12] LABS: ALANINE AMINOTRANSFERASE 17 U/L (12-78); ALBUMIN 3.4 g/dL (3.4-5.0); ALCOHOL, BLOOD < 3 mg/dL (0-10); ALKALINE PHOSPHATASE 173 U/L (46-116); ASPARTATE AMINOTRANSFERASE 13 U/L (15-37); BILIRUBIN,DIRECT 0.1 mg/dL (0.0-0.2); BILIRUBIN,TOTAL 0.6 mg/dL (0.2-1.0); TOTAL PROTEIN, SERUM 8.4 g/dL (6.4-8.2)
[2024-06-28 17:15] LABS: LACTIC ACID 6.3 mmol/L (0.4-2.0)
[2024-06-28] MEDS ORDERED: EZET10TA32 PO (17:21)
[2024-06-28] MEDS ORDERED: BENA20TA9 PO (17:21)
[2024-06-28] MEDS ORDERED: METF-442 PO (17:21)
[2024-06-28] MEDS ORDERED: PIPERACI/TAZO 3.375GM/D5W 50ML PB IV ONE (17:35)
[2024-06-28] MEDS: PIPERACILLIN /TAZOBACTAM 3.375 G in IV D5W 50 ML IV ONE (17:40)
[2024-06-28] MEDS ORDERED: NOREPINEPHRINE 8MG/250ML RTU 250 ML IV ONE (17:45)
[2024-06-28 20:28] LABS: APPEARANCE,URINE Turbid (CLEAR); BILIRUBIN,URINE SMALL (NEGATIVE); BLOOD, URINE Moderate Ery/uL (NEGATIVE); COLOR,URINE YELLOW (YELLOW); KETONES,URINE Trace mg/dL (NEGATIVE); LEUKOCYTE ESTERASE ,URINE Large (NEGATIVE); NITRITE, URINE Negative (NEGATIVE); PROTEIN,URINE >=300 mg/dl (NEGATIVE); UGLUCOSE Negative (NEGATIVE); UROBILINOGEN,URINE 0.2 EU/dL (0.2)
[2024-06-28 20:36] LABS: ADD URINE CULTURE YES; BACTERIA,URINE 1+ /HPF (None Seen); WBC,URINE 81-100 /HPF (0-3)
[2024-06-28 20:37] LABS: MUCUS,URINE Few /LPF (None Seen); SQUAMOUS EPITHELIAL CELL,UR 0-2 /HPF (None Seen)
[2024-06-28 20:40] LABS: AMPHETAMINE, URINE NEGATIVE (NEGATIVE); BARBITURATE, URINE NEGATIVE (NEGATIVE); BENZODIAZEPINE, URINE NEGATIVE (NEGATIVE); CANNABINOID, URINE NEGATIVE (NEGATIVE); COCCAINE, URINE NEGATIVE (NEGATIVE); OPIATE, URINE NEGATIVE (NEGATIVE); PHENCYCLIDINE SCREEN,URINE NEGATIVE (NEGATIVE)
[2024-06-28] MEDS ORDERED: INSULIN REGULAR, HUMAN 100 UNIT/ML 10 ML VIAL SQ SCH (22:30)
[2024-06-28] MEDS ORDERED: ENOXAPARIN SODIUM 40 MG/0.4 ML DISP.SYRIN SQ SCH (22:30)
[2024-06-28] MEDS ORDERED: NOREPINEPHRINE 8 MG in IV D5W 242 ML IV PRN (22:30)
[2024-06-28] MEDS ORDERED: ACETAMINOPHEN 325 MG TABLET PO PRN (22:30)
[2024-06-28] MEDS ORDERED: Z GUARD REMEDY 4 OZ OINT TP PRN (22:30)
[2024-06-28] MEDS ORDERED: ONDANSETRON HCL/PF 4 MG/2 ML VIAL IVP PRN (22:30)
[2024-06-28 22:45] VITALS: BP 87/48; TEMP 98.4; O2SAT 91; O2SAT 98
[2024-06-28] MEDS: NOREPINEPHRINE 8 MG in IV D5W 242 ML IV PRN (22:45)
[2024-06-28] MEDS: BLOOD SUGAR DIAGNOSTIC 1 EACH STRIP IN SCH (22:49)
[2024-06-28 23:00] VITALS: BP 139/75; O2SAT 99
[2024-06-28 23:15] VITALS: BP 118/65; O2SAT 97
[2024-06-28] MEDS: HEPARIN SODIUM, PORCINE 5000 UNITS/1 ML VIAL SQ SCH (23:15)
[2024-06-28 23:30] VITALS: BP 145/72; O2SAT 97
[2024-06-28 23:45] VITALS: BP 151/77; O2SAT 97
[2024-06-29] VITALS (89 sets, daily range): BP systolic 79–165; BP diastolic 52–88; TEMP 97.7–98.4; O2SAT 95–100
[2024-06-29] MEDS ORDERED: DEXTROSE 50%-WATER 50 ML DISP.SYRIN IV PRN
[2024-06-29] MEDS: INSULIN REGULAR, HUMAN 100 UNIT/ML 3 ML VIAL SQ PRN (00:23)
[2024-06-29] MEDS: IV NS 0.9% 250 ML IV PRN (03:00)
[2024-06-29 05:12] LABS: BASOPHILS % (AUTO) 0.1 % (0.0-2.0); EOSINOPHILS % (AUTO) 0.1 % (0.0-6.0); HEMATOCRIT 35 % (39-51); HEMOGLOBIN 11.7 g/dL (13.5-17.5); LYMPHOCYTES # (AUTO) 1.9 K/uL (0.8-4.8); LYMPHOCYTES % (AUTO) 13.3 % (20.0-44.0); MEAN CORPUSCULAR HEMOGLOBIN 28 PG (26.0-33.0); MEAN CORPUSCULAR HGB CONC 33 g/dl (31.0-36.0); MEAN CORPUSCULAR VOLUME 83 fL (80-96); MONOCYTES # (AUTO) 0.8 K/uL (0.1-1.30); MONOCYTES % (AUTO) 5.8 % (2.0-12.0); NEUTROPHILS # (AUTO) 11.3 K/uL (1.8-8.9); NEUTROPHILS % (AUTO) 80.7 % (43.0-81.0); PLATELET COUNT (AUTO) 302 K/uL (150-450); RED BLOOD CELL COUNT(AUTO) 4.24 MIL/uL (4.5-6.0); RED CELL DISTRIBUTION WIDTH 15.3 % (11.5-15.0)
[2024-06-29 06:17] LABS: LACTIC ACID 2.8 mmol/L (0.4-2.0)
[2024-06-29 06:19] LABS: THYROID STIMULATING HORMONE 1.65 uIU/mL (0.358-3.74)
[2024-06-29] MEDS ORDERED: PIPERACILLIN /TAZOBACTAM 4.5 G in IV NS 0.9% 50 ML IV ONE (07:00)
[2024-06-29 07:17] LABS: ALBUMIN 3.1 g/dL (3.4-5.0); BILIRUBIN,DIRECT 0.1 mg/dL (0.0-0.2); BILIRUBIN,TOTAL 0.5 mg/dL (0.2-1.0); CALCIUM, SERUM 8.2 mg/dL (8.5-10.1); CREATININE 6.7 mg/dL (0.6-1.3); MAGNESIUM 2.3 mg/dL (1.8-2.4); POTASSIUM 3.8 mmol/L (3.5-5.1); TOTAL PROTEIN, SERUM 8.1 g/dL (6.4-8.2)
[2024-06-29 07:20] LABS: PHOSPHORUS 8.3 mg/dL (2.5-4.9)
[2024-06-29] MEDS: ZOSYN IVPB 2.25 G in IV D5W 50ml IV ONE (08:05)
[2024-06-29] MEDS: PANTOPRAZOLE 40 MG VIAL IV SCH (08:17)
[2024-06-29] MEDS: MIDODRINE HCL (5MG) 5 MG TABLET PO SCH (14:55)
[2024-06-29] MEDS ORDERED: MIDODRINE HCL (5MG) 5 MG TABLET PO SCH (17:00)
[2024-06-29] MEDS: PIPERACILLIN /TAZOBACTAM 3.375 G in IV D5W 100 ML IV SCH (20:38)
[2024-06-30] VITALS (39 sets, daily range): BP systolic 89–154; BP diastolic 62–84; TEMP 97.1–98.5; O2SAT 98–100
[2024-06-30 04:07] LABS: BASOPHILS % (AUTO) 0.3 % (0.0-2.0); EOSINOPHILS % (AUTO) 0.1 % (0.0-6.0); HEMATOCRIT 34 % (39-51); HEMOGLOBIN 11.6 g/dL (13.5-17.5); LYMPHOCYTES # (AUTO) 1.3 K/uL (0.8-4.8); MEAN CORPUSCULAR HEMOGLOBIN 28 PG (26.0-33.0); MEAN CORPUSCULAR HGB CONC 34 g/dl (31.0-36.0); MEAN CORPUSCULAR VOLUME 83 fL (80-96); MONOCYTES # (AUTO) 0.7 K/uL (0.1-1.30); MONOCYTES % (AUTO) 6.5 % (2.0-12.0); NEUTROPHILS # (AUTO) 8.1 K/uL (1.8-8.9); NEUTROPHILS % (AUTO) 80.1 % (43.0-81.0); PLATELET COUNT (AUTO) 277 K/uL (150-450); RED BLOOD CELL COUNT(AUTO) 4.14 MIL/uL (4.5-6.0); RED CELL DISTRIBUTION WIDTH 15.3 % (11.5-15.0); WHITE BLOOD COUNT (AUTO) 10.1 K/uL (4.3-11.0)
[2024-06-30 04:25] LABS: ALBUMIN 2.8 g/dL (3.4-5.0); BILIRUBIN,TOTAL 0.7 mg/dL (0.2-1.0); CALCIUM, SERUM 8.1 mg/dL (8.5-10.1); CREATININE 6.4 mg/dL (0.6-1.3); MAGNESIUM 2.1 mg/dL (1.8-2.4); PHOSPHORUS 7.4 mg/dL (2.5-4.9); POTASSIUM 3.7 mmol/L (3.5-5.1); TOTAL PROTEIN, SERUM 7.5 g/dL (6.4-8.2)
[2024-06-30] MEDS: EZETIMIBE 10 MG TABLET PO SCH (08:35)
[2024-06-30] MEDS: ATORVASTATIN 40 MG TABLET PO SCH (08:35)
[2024-06-30] MEDS: PANTOPRAZOLE 40 MG TABLET.DR PO SCH (08:43)
[2024-06-30] MEDS ORDERED: BENAZEPRIL HCL 20 MG TABLET PO SCH (09:00)
[2024-07-01] VITALS: BP 103/61; TEMP 98.4; O2SAT 98
[2024-07-01 04:00] VITALS: BP 137/77; TEMP 97.9; O2SAT 99
[2024-07-01] MEDS: METOCLOPRAMIDE HCL 10 MG/2 ML VIAL IV ONE (05:46)
[2024-07-01 06:25] LABS: BASOPHILS % (AUTO) 0.4 % (0.0-2.0); EOSINOPHILS % (AUTO) 0.3 % (0.0-6.0); HEMATOCRIT 34 % (39-51); HEMOGLOBIN 11.4 g/dL (13.5-17.5); LYMPHOCYTES # (AUTO) 1.3 K/uL (0.8-4.8); LYMPHOCYTES % (AUTO) 15.9 % (20.0-44.0); MEAN CORPUSCULAR HEMOGLOBIN 28 PG (26.0-33.0); MEAN CORPUSCULAR HGB CONC 34 g/dl (31.0-36.0); MEAN CORPUSCULAR VOLUME 83 fL (80-96); MONOCYTES # (AUTO) 0.6 K/uL (0.1-1.30); MONOCYTES % (AUTO) 7.2 % (2.0-12.0); NEUTROPHILS # (AUTO) 6.2 K/uL (1.8-8.9); NEUTROPHILS % (AUTO) 76.2 % (43.0-81.0); PLATELET COUNT (AUTO) 253 K/uL (150-450); RED BLOOD CELL COUNT(AUTO) 4.09 MIL/uL (4.5-6.0); RED CELL DISTRIBUTION WIDTH 15.2 % (11.5-15.0); WHITE BLOOD COUNT (AUTO) 8.2 K/uL (4.3-11.0)
[2024-07-01 06:51] LABS: CALCIUM, SERUM 8.3 mg/dL (8.5-10.1); CREATININE 4.9 mg/dL (0.6-1.3); MAGNESIUM 2.2 mg/dL (1.8-2.4); PHOSPHORUS 5.2 mg/dL (2.5-4.9); POTASSIUM 3.3 mmol/L (3.5-5.1)
[2024-07-01 08:00] VITALS: BP 105/75; TEMP 98.5; O2SAT 98
[2024-07-01 08:06] LABS: PTH, INTACT 9 pg/mL (15-65)
[2024-07-01] MEDS: POTASSIUM CHLORIDE 20 MEQ TAB.PRT.SR PO ONE (08:14)
[2024-07-01 10:13] LABS: *SPE A/G RATIO 0.7 (0.7-1.7); *SPE ALBUMIN 2.9 g/dL (2.9-4.4); *SPE ALPHA-1-GLOBULIN 0.3 g/dL (0.0-0.4); *SPE BETA GLOBULIN 1.2 g/dL (0.7-1.3); *SPE M-SPIKE Not Observed g/dL (Not Observed); *SPE PROTEIN TOTAL 6.9 g/dL (6.0-8.5); *SPEGAMMA GLOBULIN 1.6 g/dL (0.4-1.8)
[2024-07-01] MEDS: MUPIROCIN OINT 2% 22 GM TUBE NS SCH (11:43)
[2024-07-01 16:00] VITALS: BP 114/63; TEMP 99; O2SAT 98
[2024-07-01] MEDS ORDERED: NEPRO VAN 237 ML CAN PO PRN (17:30)
[2024-07-01 20:00] VITALS: BP 103/60; TEMP 98.6; O2SAT 100
[2024-07-02] VITALS: BP 103/60; TEMP 98.6; O2SAT 100
[2024-07-02 06:39] LABS: BASOPHILS % (AUTO) 0.5 % (0.0-2.0); EOSINOPHILS # (AUTO) 0.1 K/uL (0.0-0.7); EOSINOPHILS % (AUTO) 0.9 % (0.0-6.0); HEMATOCRIT 37 % (39-51); HEMOGLOBIN 12.2 g/dL (13.5-17.5); LYMPHOCYTES # (AUTO) 1.3 K/uL (0.8-4.8); LYMPHOCYTES % (AUTO) 22.5 % (20.0-44.0); MEAN CORPUSCULAR HEMOGLOBIN 27 PG (26.0-33.0); MEAN CORPUSCULAR HGB CONC 33 g/dl (31.0-36.0); MEAN CORPUSCULAR VOLUME 83 fL (80-96); MONOCYTES # (AUTO) 0.4 K/uL (0.1-1.30); MONOCYTES % (AUTO) 7.5 % (2.0-12.0); NEUTROPHILS % (AUTO) 68.6 % (43.0-81.0); PLATELET COUNT (AUTO) 270 K/uL (150-450); RED BLOOD CELL COUNT(AUTO) 4.44 MIL/uL (4.5-6.0); RED CELL DISTRIBUTION WIDTH 15.5 % (11.5-15.0); WHITE BLOOD COUNT (AUTO) 5.9 K/uL (4.3-11.0)
[2024-07-02 07:11] LABS: ALBUMIN 3.1 g/dL (3.4-5.0); BILIRUBIN,TOTAL 0.6 mg/dL (0.2-1.0); CALCIUM, SERUM 8.7 mg/dL (8.5-10.1); CREATININE 3.4 mg/dL (0.6-1.3); MAGNESIUM 2.5 mg/dL (1.8-2.4); PHOSPHORUS 4.1 mg/dL (2.5-4.9); POTASSIUM 3.8 mmol/L (3.5-5.1); TOTAL PROTEIN, SERUM 7.8 g/dL (6.4-8.2)
[2024-07-02 08:00] VITALS: BP 134/82; TEMP 97.5; O2SAT 99
[2024-07-02 12:20] VITALS: BP 131/68
[2024-07-02] MEDS ORDERED: MIDO5TAB4 PO (12:31)
[2024-07-02] MEDS ORDERED: NITR100C6 PO (12:31)
[2024-07-05] MEDS ORDERED: NITR100C6 PO (11:36)
[2024-07-05] MEDS ORDERED: MIDO10TA PO (11:36)
== END 2024-07-02 14:40 | disposition home or self-care (01) | DRG 720 ==
LOC: ER 16:24 → ICU 19:54 → TELE1 06-30 15:28 → MEDSG1 07-01 09:42
PROVIDERS: ADMIT Surgery Vascular Surgery; ATTEND Internal Medicine
PROC: 02HV33Z Insertion of Infusion Device into Superior Vena Cava, Percutaneous Approach (ICD-10-PCS; principal; 2024-06-28)
PROC: B548ZZA Ultrasonography of Superior Vena Cava, Guidance (ICD-10-PCS; 2024-06-28)
DX: A41.9 Sepsis, unspecified organism (principal); R65.21 Severe sepsis with septic shock; G93.41 Metabolic encephalopathy; E87.20 Acidosis, unspecified; E87.1 Hypo-osmolality and hyponatremia; N13.8 Other obstructive and reflux uropathy; D63.8 Anemia in other chronic diseases classified elsewhere; N17.9 Acute kidney failure, unspecified; K80.20 Calculus of gallbladder without cholecystitis without obstruction; H54.8 Legal blindness, as defined in USA; N39.0 Urinary tract infection, site not specified; I10 Essential (primary) hypertension; E11.40 Type 2 diabetes mellitus with diabetic neuropathy, unspecified; Z89.612 Acquired absence of left leg above knee; Z89.511 Acquired absence of right leg below knee; R27.8 Other lack of coordination; Z51.5 Encounter for palliative care; H40.139 Pigmentary glaucoma, unspecified eye; Z88.2 Allergy status to sulfonamides; Z79.84 Long term (current) use of oral hypoglycemic drugs; Z79.899 Other long term (current) drug therapy; N40.1 Benign prostatic hyperplasia with lower urinary tract symptoms; B96.89 Other specified bacterial agents as the cause of diseases classified elsewhere; Z95.0 Presence of cardiac pacemaker; N21.0 Calculus in bladder; E86.1 Hypovolemia; E78.5 Hyperlipidemia, unspecified
CPT/HCPCS: 36415; 70450-TC; 71045-TC; 80048-TC; 80053-TC; 80076-TC; 81001; 82550-TC; 82962-TC; 83605-TC; 83690-TC; 83735-TC; 83970; 84100-TC; 84155; 84165; 84443-TC; 84484-TC; 85025-TC; 85730-TC; 87040-TC; 87081-TC; 87086-TC; A4223; G0378; G0480; J1644; J1815; J2470; J2543; J2765; J7040; J7050; J7060